=== PATIENT | female | born 1940 | race Caucasian/White ===

== ENCOUNTER 2020-05-29 08:24 | Outpatient (REF) | payer MEDICARE, SELFPAY ==
[2020-05-29 11:11] LABS: MANUAL DIFF FLAG NO
[2020-05-29 11:29] LABS: Basophils Percent Auto 0.7 % (0-2); Eosinophils Absolute Auto 0.2 X10*3/uL (0.0-0.4); Eosinophils Percent Auto 3.5 % (0-4); Hematocrit 41.6 % (37-47); Hemoglobin 13.5 g/dl (12.0-16.0); Imm Gran Abs Auto 0.01 X10*3/uL (0.00-0.03); Imm Gran Pct Auto 0.2 % (0.0-0.4); Lymphocytes Absolute Auto 1.5 X10*3/uL (1.2-4.9); Lymphocytes Percent Auto 34.6 % (20-40); Mean Corpuscular HGB Conc 32.5 g/dl (31.0-35.0); Mean Corpuscular Hemoglobin 30.7 pg (27.0-33.0); Mean Corpuscular Volume 94.5 fL (80-98); Mean Platelet Volume 9.2 fL (9.4-12.3); Monocytes Absolute Auto 0.4 X10*3/uL (0.1-1.2); Monocytes Percent Auto 9.8 % (2-11); Neutrophils Absolute Auto 2.2 X10*3/uL (2.0-8.3); Neutrophils Percent Auto 51.2 % (45-73); Platelet Count 307 X10*3/uL (160-400); Red Cell Distribution Width 12.2 % (11.0-16.0); White Blood Count 4.3 X10*3/uL (4.8-10.8)
[2020-05-29 11:46] LABS: Alanine Aminotransferase 18 U/L (0-31); Albumin Level 4.1 g/dL (3.5-5.0); Alkaline Phosphatase 72 U/L (39-117); Anion Gap 14 (12-20); Aspartate Amino Transferase 21 U/L (5-31); Bilirubin Total 0.5 mg/dL (0.0-1.0); Blood Urea Nitrogen 12 mg/dL (9-16); Calcium 8.8 mg/dL (8.4-10.2); Carbon Dioxide 28 mmol/L (22-29); Chloride 103 mmol/L (96-108); Cholesterol 194 mg/dL; Estimated Glomerular Filt Rate > 60; Glucose Fasting 91 mg/dL (60-99); HDL Cholesterol 68 mg/dL; LDL Cholesterol Calculated 113 mg/dl; Sodium 141 mmol/L (135-145); Total Protein 6.8 g/dL (6.5-8.0); Triglycerides 69 mg/dL
[2020-05-29 11:48] LABS: Glucose Urine UA NEG (NEG); Leukocyte Esterase Urine TRACE (NEG); Nitrite Urine NEG (NEG); Specific Gravity - Urine 1.015 (1.005-1.025); Urine Blood TRACE (NEG); Urine Ketones NEG (NEG); Urine Protein NEG (NEG-TRACE)
[2020-05-29 11:58] LABS: Appearance Urine CLEAR; Color Urine YELLOW
[2020-05-29 12:08] LABS: Creatinine Urine 72.14 mg/dL; Microalbumin Urine < 5.0 mg/L; Thyroid Stimulating Hormone 1.62 uIU/mL (0.32-4.0); Vitamin D 25-OH Total 51.7 ng/mL (>30)
[2020-05-29 12:11] LABS: Estimated Average Glucose 108 mg/dL; Hemoglobin A1c % 5.4 %
[2020-05-29 12:38] LABS: RBC Urine 0-2 /HPF (0); Squamous Epithelial Cell Urine TRACE /LPF; WBC Urine 0-2 /HPF (0-4)
== END 2020-05-29 08:25 | disposition home or self-care (01) ==
LOC: HO.HMGCLDS 08:24
PROVIDERS: PCP Internal Medicine; Visit Provider Internal Medicine
DX: E03.9 Hypothyroidism, unspecified (principal); R73.03 Prediabetes; M81.0 Age-related osteoporosis without current pathological fracture; Z87.448 Personal history of other diseases of urinary system; Z86.39 Personal history of other endocrine, nutritional and metabolic disease
CPT/HCPCS: 36415; 80053; 80061; 81001; 82043; 82306; 83036; 84443; 85025

== ENCOUNTER 2020-07-26 08:27 | Outpatient (REF) | payer MEDICARE, SELFPAY ==
--- NOTE | ~2020-07-26 | MM_ITS ---
EXAMINATION: MM SCREENING DIGITAL BREAST TOMOSYNTHESIS, BILATERAL CLINICAL INFORMATION: Screening. Asymptomatic. The lifetime risk of breast cancer based on the Tyrer-Cuzick Model is 1%. COMPARISON: Mammography: 07/21/2019, 04/25/2018, 03/06/2017 TECHNIQUE: Digital breast tomosynthesis is performed in both the craniocaudal and mediolateral oblique views along with computer-aided detection (CAD). Synthesized 2D images are generated from the tomosynthesis. FINDINGS: There are scattered areas of fibroglandular density (ACR BI-RADS breast composition Category b). There are no significant masses, abnormal calcifications, or other abnormalities. The axilla and skin contours are unremarkable. No significant changes. MM/MM tomosynthesis screening BI IMPRESSION: No mammographic evidence of malignancy. ASSESSMENT: BI-RADS 1: Negative RECOMMENDATION: Routine annual mammography screening. This patient's information was entered into a reminder system with a target due date for their next mammogram.
== END 2020-07-26 08:28 | disposition home or self-care (01) ==
LOC: HO.MAMMO 08:27
PROVIDERS: PCP Internal Medicine; Visit Provider Internal Medicine
DX: Z12.31 Encounter for screening mammogram for malignant neoplasm of breast (principal)
CPT/HCPCS: 77063; 77067

== ENCOUNTER 2021-01-11 13:56 | Outpatient (REF) | payer MEDICARE, SELFPAY ==
[2021-01-11 14:19] LABS: Glucose Urine UA NEG (NEG); Leukocyte Esterase Urine 3+ (NEG); Nitrite Urine POS (NEG); Urine Blood 2+ (NEG); Urine Ketones NEG (NEG); Urine Protein NEG (NEG-TRACE)
[2021-01-11 14:26] LABS: Appearance Urine HAZY; Color Urine YELLOW
[2021-01-11 14:34] LABS: Bacteria Urine 3+ /LPF; RBC Urine 0 /HPF (0); Renal Epithelial Cells Urine 1+ /LPF; WBC Clumps Urine NOTED; WBC Urine 30-49 /HPF (0-4)
== END 2021-01-11 13:57 | disposition home or self-care (01) ==
LOC: HO.LNP 13:56
PROVIDERS: Visit Provider Internal Medicine
DX: N30.00 Acute cystitis without hematuria (principal)
CPT/HCPCS: 81001; 87086; 87088; 87186

== ENCOUNTER 2021-01-25 07:30 | Outpatient (REF) | payer MEDICARE, SELFPAY ==
[2021-01-25 10:55] LABS: Glucose Urine UA NEG (NEG); Leukocyte Esterase Urine 3+ (NEG); Nitrite Urine NEG (NEG); Specific Gravity - Urine 1.015 (1.005-1.025); Urine Blood TRACE (NEG); Urine Ketones NEG (NEG); Urine Protein NEG (NEG-TRACE)
[2021-01-25 11:04] LABS: Appearance Urine HAZY; Color Urine YELLOW
[2021-01-25 11:31] LABS: Squamous Epithelial Cell Urine 3+ /LPF
[2021-01-25 11:32] LABS: Renal Epithelial Cells Urine 3+ /LPF
== END 2021-01-25 07:31 | disposition home or self-care (01) ==
LOC: HO.LNP 07:30
PROVIDERS: Visit Provider Internal Medicine
DX: N30.01 Acute cystitis with hematuria (principal)
CPT/HCPCS: 81001; 81003; 87086

== ENCOUNTER 2021-02-23 10:30 | Outpatient (REF) | payer MEDICARE, SELFPAY ==
[2021-02-23 10:53] LABS: Appearance Urine HAZY; Color Urine YELLOW; Glucose Urine UA NEG (NEG); Leukocyte Esterase Urine 2+ (NEG); Nitrite Urine NEG (NEG); PH 7.5 (5.0-8.0); Specific Gravity - Urine 1.015 (1.005-1.025); Urine Blood TRACE (NEG); Urine Ketones NEG (NEG); Urine Protein NEG (NEG-TRACE)
[2021-02-23 11:11] LABS: Amorphous Sediment Urine 1+ /LPF; Mucus Urine 2+ /LPF; RBC Urine 0-2 /HPF (0); Renal Epithelial Cells Urine 1+ /LPF; Squamous Epithelial Cell Urine 2+ /LPF
== END 2021-02-23 10:31 | disposition home or self-care (01) ==
LOC: HO.LNP 10:30
PROVIDERS: Visit Provider Internal Medicine
DX: R31.9 Hematuria, unspecified (principal)
CPT/HCPCS: 81001

== ENCOUNTER 2021-05-21 14:56 | Outpatient (REF) | payer MEDICARE, SELFPAY ==
[2021-05-21 15:36] LABS: Appearance Urine CLEAR; Color Urine YELLOW; Glucose Urine UA NEG (NEG); Leukocyte Esterase Urine 3+ (NEG); Nitrite Urine NEG (NEG); PH 6.5 (5.0-8.0); Specific Gravity - Urine <= 1.005 (1.005-1.025); Urine Blood 1+ (NEG); Urine Ketones NEG (NEG); Urine Protein NEG (NEG-TRACE)
[2021-05-21 16:29] LABS: Bacteria Urine 2+ /LPF; Squamous Epithelial Cell Urine 1+ /LPF
== END 2021-05-21 14:57 | disposition home or self-care (01) ==
LOC: HO.LNP 14:56
PROVIDERS: Visit Provider Internal Medicine
DX: N30.00 Acute cystitis without hematuria (principal)
CPT/HCPCS: 81001; 81003; 87086; 87088; 87186

== ENCOUNTER 2021-06-04 10:36 | Outpatient (REF) | payer MEDICARE, SELFPAY ==
[2021-06-04 11:08] LABS: Appearance Urine CLEAR; Color Urine YELLOW; Glucose Urine UA NEG (NEG); Leukocyte Esterase Urine 1+ (NEG); Nitrite Urine NEG (NEG); Specific Gravity - Urine 1.015 (1.005-1.025); Urine Blood NEG (NEG); Urine Ketones NEG (NEG); Urine Protein NEG (NEG-TRACE)
[2021-06-04 11:20] LABS: RBC Urine 0 /HPF (0); Squamous Epithelial Cell Urine 2+ /LPF
[2021-06-04 11:21] LABS: Amorphous Sediment Urine TRACE /LPF; Renal Epithelial Cells Urine TRACE /LPF
== END 2021-06-04 10:37 | disposition home or self-care (01) ==
LOC: HO.LNP 10:36
PROVIDERS: Visit Provider Internal Medicine
DX: N39.0 Urinary tract infection, site not specified (principal)
CPT/HCPCS: 81001; 87086

== ENCOUNTER 2021-06-11 10:51 | Outpatient (REF) | payer MEDICARE, SELFPAY ==
[2021-06-11 10:53] LABS: MANUAL DIFF FLAG NO
[2021-06-11 11:17] LABS: Basophils Percent Auto 0.5 % (0-2); Eosinophils Absolute Auto 0.2 X10*3/uL (0.0-0.4); Eosinophils Percent Auto 2.3 % (0-4); Hematocrit 42.3 % (37.0-47.0); Hemoglobin 13.7 g/dl (12.0-16.0); Imm Gran Abs Auto 0.01 X10*3/uL (0.00-0.03); Imm Gran Pct Auto 0.2 % (0.0-0.4); Lymphocytes Absolute Auto 1.6 X10*3/uL (1.2-4.9); Lymphocytes Percent Auto 24.9 % (20-40); Mean Corpuscular HGB Conc 32.4 g/dl (31.0-35.0); Mean Corpuscular Hemoglobin 30.6 pg (27.0-33.0); Mean Corpuscular Volume 94.6 fL (80.0-98.0); Mean Platelet Volume 9.3 fL (9.4-12.3); Monocytes Absolute Auto 0.7 X10*3/uL (0.1-1.2); Monocytes Percent Auto 10.3 % (2-11); Neutrophils Percent Auto 61.8 % (45-73); Platelet Count 309 X10*3/uL (160-400); Red Blood Count 4.47 X10*6/uL (4.20-5.50); Red Cell Distribution Width 12.2 % (11.0-16.0); White Blood Count 6.4 X10*3/uL (4.8-10.8)
[2021-06-11 11:35] LABS: Estimated Average Glucose 108 mg/dL; Hemoglobin A1c % 5.4 %
[2021-06-11 11:44] LABS: Alanine Aminotransferase 19 U/L (0-31); Alkaline Phosphatase 74 U/L (39-117); Anion Gap 12 (12-20); Aspartate Amino Transferase 22 U/L (5-31); Bilirubin Total 0.6 mg/dL (0.0-1.0); Blood Urea Nitrogen 10 mg/dL (9-16); Calcium 9.6 mg/dL (8.4-10.2); Carbon Dioxide 28 mmol/L (22-29); Chloride 104 mmol/L (96-108); Cholesterol 198 mg/dL; Estimated Glomerular Filt Rate > 60; Glucose Fasting 100 mg/dL (60-99); HDL Cholesterol 67 mg/dL; LDL Cholesterol Calculated 113 mg/dl; Potassium 4.1 mmol/L (3.3-5.1); Sodium 140 mmol/L (135-145); Total Protein 6.9 g/dL (6.5-8.0); Triglycerides 91 mg/dL
[2021-06-11 11:45] LABS: Appearance Urine HAZY; Color Urine YELLOW; Glucose Urine UA NEG (NEG); Leukocyte Esterase Urine 2+ (NEG); Nitrite Urine NEG (NEG); PH 6.5 (5.0-8.0); Urine Blood TRACE (NEG); Urine Ketones NEG (NEG); Urine Protein NEG (NEG-TRACE)
[2021-06-11 11:47] LABS: Microalbum/Creatinine Ratio Ur 8.6 ug/mg cr
[2021-06-11 11:55] LABS: RBC Urine 0-2 /HPF (0); Squamous Epithelial Cell Urine 1+ /LPF
[2021-06-11 11:56] LABS: Mucus Urine 1+ /LPF
[2021-06-11 11:58] LABS: Vitamin D 25-OH Total 46.7 ng/mL (>30)
== END 2021-06-11 10:52 | disposition home or self-care (01) ==
LOC: HO.LNP 10:51
PROVIDERS: Visit Provider Internal Medicine
DX: E03.9 Hypothyroidism, unspecified (principal); R73.03 Prediabetes; Z86.39 Personal history of other endocrine, nutritional and metabolic disease
CPT/HCPCS: 80053; 80061; 81001; 81003; 82043; 82306; 83036; 85025

== ENCOUNTER 2021-07-17 15:44 | Outpatient (REF) | payer MEDICARE, SELFPAY | END 2021-07-17 15:45 | disposition home or self-care (01) | LOC: HO.LNP 15:44 | PROVIDERS: Visit Provider Internal Medicine | DX: E03.9 Hypothyroidism, unspecified (principal); N39.0 Urinary tract infection, site not specified | CPT/HCPCS: 84443; 87086 ==

== ENCOUNTER 2021-08-15 14:58 | Outpatient (REF) | payer MEDICARE, SELFPAY ==
--- NOTE | ~2021-08-15 | MM_ITS ---
EXAMINATION: MM SCREENING DIGITAL BREAST TOMOSYNTHESIS, BILATERAL CLINICAL INFORMATION: Screening. Asymptomatic. The lifetime risk of breast cancer based on the Tyrer-Cuzick Model is 1%. COMPARISON: Mammography: 07/26/2020, 07/21/2019, 04/25/2018 TECHNIQUE: Digital breast tomosynthesis is performed in both the craniocaudal and mediolateral oblique views along with computer-aided detection (CAD). Synthesized 2D images are generated from the tomosynthesis. Additional left MLO view is provided. FINDINGS: There are scattered areas of fibroglandular density (ACR BI-RADS breast composition Category b). There are no significant masses, abnormal calcifications, or other abnormalities. Parenchymal pattern is similar to prior studies. There is no developing density or architectural abnormality. The axilla and skin contours are unremarkable. No significant changes. MM/MM tomosynthesis screening BI IMPRESSION: There are no significant changes from prior study. ASSESSMENT: BI-RADS 1: Negative RECOMMENDATION: Routine annual mammography screening. This patient's information was entered into a reminder system with a target due date for their next mammogram.
== END 2021-08-15 14:59 | disposition home or self-care (01) ==
LOC: HO.MAMMO 14:58
PROVIDERS: PCP Internal Medicine; Visit Provider Internal Medicine
DX: Z12.31 Encounter for screening mammogram for malignant neoplasm of breast (principal)
CPT/HCPCS: 77063; 77067

== ENCOUNTER 2021-09-18 12:36 | Outpatient (REF) | payer MEDICARE, SELFPAY ==
[2021-09-18 13:17] LABS: Appearance Urine HAZY; Color Urine YELLOW; Glucose Urine UA NEG (NEG); Leukocyte Esterase Urine 1+ (NEG); Nitrite Urine NEG (NEG); PH 6.5 (5.0-8.0); Specific Gravity - Urine <= 1.005 (1.005-1.025); Urine Blood 3+ (NEG); Urine Ketones NEG (NEG); Urine Protein NEG (NEG-TRACE)
[2021-09-18 13:59] LABS: RBC Urine 50-75 /HPF (0); Renal Epithelial Cells Urine 1+ /LPF; Squamous Epithelial Cell Urine 1+ /LPF; WBC Urine 0-2 /HPF (0-4)
== END 2021-09-18 12:37 | disposition home or self-care (01) ==
LOC: HO.LNP 12:36
PROVIDERS: Visit Provider Internal Medicine
DX: N39.0 Urinary tract infection, site not specified (principal)
CPT/HCPCS: 81001; 81003; 87086

== ENCOUNTER 2021-09-26 13:29 | Outpatient (REF) | payer MEDICARE, SELFPAY ==
--- NOTE | ~2021-09-26 | CT_ITS ---
EXAMINATION: CT ABDOMEN AND PELVIS WITHOUT CONTRAST CLINICAL INFORMATION: Kidney stone. COMPARISON: CT abdomen and pelvis 08/30/2019. TECHNIQUE: Multidetector volumetric imaging was performed from the superior aspect of the liver through the pubic symphysis. Sagittal and coronal reformatted images were obtained on the technologist's workstation. This CT examination was performed using dose optimization techniques as appropriate, variously including the following: *Automated exposure control *Adjustment of mA and/or kV according to patient size (this includes techniques or standardized protocols for targeted exams where dose is matched to indication/reason for exam; i.e. extremities or head) *Use of iterative reconstruction technique DLP: 460 mGy-cm FINDINGS: LUNG BASES: Focal atelectatic changes seen in the right lung base. The heart size is normal. LIVER, GALLBLADDER, AND BILIARY TREE: The liver is normal in size, shape, and attenuation. No focal hepatic lesion or biliary ductal dilatation is present. The gallbladder is unremarkable with no evidence of radiopaque gallstones, gallbladder wall thickening, or obvious pericholecystic inflammatory changes. PANCREAS: Unremarkable. SPLEEN: Unremarkable. ADRENAL GLANDS: Unremarkable. KIDNEYS AND URETERS: The kidneys are normal in size, shape, and attenuation. No hydronephrosis, hydroureter, or calculi seen. No perinephric stranding. There are bilateral extrarenal kidney pelvises slightly larger on the right. There is no hydroureter. BLADDER: The bladder is distended with no bladder wall thickening or radiopaque calculi seen. GASTROINTESTINAL TRACT: There is scattered stool, gas and few scattered diverticuli seen throughout the colon without any significant distention. The small bowel loops are normal caliber. Appendix is normal caliber. ABDOMINAL WALL: No significant hernia is appreciated. LYMPH NODES: No abnormal lymph nodes seen. VASCULAR: Unremarkable. PELVIC VISCERA: No free air or free fluid seen. The uterus is anteverted. No adnexal mass seen. OSSEOUS STRUCTURES: There are degenerative disc changes L5-S1 disc level with vacuum disc phenomenon mild ventral and posterior spondylosis. CT/CT abdomen pelvis wo con IMPRESSION: No radiopaque urolith. There are bilateral extrarenal kidney pelvises right greater than left. The bladder is mildly distended. Colonic diverticulosis without diverticulitis. Degenerative disc changes L5-S1 disc level. Fleischner guidelines were followed.
== END 2021-09-26 13:30 | disposition home or self-care (01) ==
LOC: HO.CT 13:29
PROVIDERS: PCP Internal Medicine; Visit Provider Internal Medicine
DX: N20.0 Calculus of kidney (principal)
CPT/HCPCS: 74176

== ENCOUNTER 2022-03-12 15:46 | Outpatient (REF) | payer MEDICARE, SELFPAY ==
[2022-03-12 16:01] LABS: Appearance Urine Clear; Color Urine Yellow; Glucose Urine UA Negative (Negative); Leukocyte Esterase Urine Large (3+) (Negative); Nitrite Urine Negative (Negative); UMIC TRIGGER UA YES; Urine Blood Negative (Negative); Urine Ketones Negative (Negative); Urine Protein Negative (Neg-Trace)
[2022-03-12 16:04] LABS: Bacteria Urine 2+ (None Seen); Hyaline Casts Urine 0-2 /LPF (0-2); RBC Urine 0-2 /HPF (0-2); Squamous Epithelial Cell Urine 0-2 /HPF (0-2); WBC Urine >50 /HPF (0-5)
== END 2022-03-12 15:47 | disposition home or self-care (01) ==
LOC: HO.LNP 15:46
PROVIDERS: Visit Provider Internal Medicine
DX: N30.00 Acute cystitis without hematuria (principal)
CPT/HCPCS: 81001; 87086; 87088; 87186

== ENCOUNTER 2022-04-05 15:43 | Outpatient (REF) | payer MEDICARE, SELFPAY ==
[2022-04-05 16:04] LABS: Appearance Urine Clear; Color Urine Yellow; Glucose Urine UA Negative (Negative); Leukocyte Esterase Urine Moderate (2+) (Negative); Nitrite Urine Negative (Negative); PH 7.5 (5.0-9.0); UMIC TRIGGER UA YES; Urine Blood Negative (Negative); Urine Ketones Negative (Negative); Urine Protein Negative (Neg-Trace)
[2022-04-05 16:21] LABS: Bacteria Urine None Seen (None Seen); Hyaline Casts Urine 0-2 /LPF (0-2); RBC Urine 0-2 /HPF (0-2); Squamous Epithelial Cell Urine 0-2 /HPF (0-2); WBC Urine 0-5 /HPF (0-5)
== END 2022-04-05 15:44 | disposition home or self-care (01) ==
LOC: HO.LNP 15:43
PROVIDERS: Visit Provider Internal Medicine
DX: R82.90 Unspecified abnormal findings in urine (principal)
CPT/HCPCS: 81001; 87086

== ENCOUNTER 2022-07-16 11:36 | Outpatient (REF) | payer MEDICARE, SELFPAY ==
[2022-07-16 11:41] LABS: MANUAL DIFF FLAG NO
[2022-07-16 11:53] LABS: Basophils Percent Auto 0.7 % (0-2); Eosinophils Absolute Auto 0.2 X10*3/uL (0.0-0.4); Eosinophils Percent Auto 4.3 % (0-4); Hematocrit 41.2 % (37.0-47.0); Hemoglobin 13.6 g/dl (12.0-16.0); Imm Gran Abs Auto 0.01 X10*3/uL (0.00-0.03); Imm Gran Pct Auto 0.2 % (0.0-0.4); Lymphocytes Absolute Auto 1.7 X10*3/uL (1.2-4.9); Lymphocytes Percent Auto 37.4 % (20-40); Mean Corpuscular Hemoglobin 30.8 pg (27.0-33.0); Mean Corpuscular Volume 93.2 fL (80.0-98.0); Mean Platelet Volume 9.3 fL (9.4-12.3); Monocytes Absolute Auto 0.5 X10*3/uL (0.1-1.2); Monocytes Percent Auto 10.5 % (2-11); Neutrophils Absolute Auto 2.1 x10*3/uL (2.0-8.3); Neutrophils Percent Auto 46.9 % (45-73); Platelet Count 297 X10*3/uL (160-400); Red Blood Count 4.42 X10*6/uL (4.20-5.50); Red Cell Distribution Width 12.4 % (11.0-16.0); White Blood Count 4.5 X10*3/uL (4.8-10.8)
[2022-07-16 11:54] LABS: Appearance Urine Clear; Color Urine Yellow; Glucose Urine UA Negative (Negative); Leukocyte Esterase Urine Trace (Negative); Nitrite Urine Negative (Negative); UMIC TRIGGER UACC YES; Urine Blood Negative (Negative); Urine Ketones Negative (Negative); Urine Protein Negative (Neg-Trace)
[2022-07-16 11:58] LABS: Bacteria Urine None Seen (None Seen); Hyaline Casts Urine 0-2 /LPF (0-2); RBC Urine 0-2 /HPF (0-2); Squamous Epithelial Cell Urine 0-2 /HPF (0-2); WBC Urine 0-5 /HPF (0-5)
[2022-07-16 12:05] LABS: Estimated Average Glucose 103 mg/dL; Hemoglobin A1c % 5.2 %
[2022-07-16 12:52] LABS: Alanine Aminotransferase 16 U/L (0-31); Albumin Level 3.9 g/dL (3.5-5.0); Alkaline Phosphatase 74 U/L (39-117); Anion Gap 14 (12-20); Aspartate Amino Transferase 22 U/L (5-31); Bilirubin Total 0.6 mg/dL (0.0-1.0); Blood Urea Nitrogen 14 mg/dL (9-16); Calcium 9.3 mg/dL (8.4-10.2); Carbon Dioxide 27 mmol/L (22-29); Chloride 102 mmol/L (96-108); Cholesterol 200 mg/dL; Estimated Glomerular Filt Rate > 60; Glucose Fasting 98 mg/dL (60-99); HDL Cholesterol 72 mg/dL; LDL Cholesterol Calculated 112 mg/dl; Potassium 4.2 mmol/L (3.3-5.1); Sodium 139 mmol/L (135-145); Total Protein 6.4 g/dL (6.5-8.0); Triglycerides 81 mg/dL
[2022-07-16 13:09] LABS: TSH reflex Free T4 2.35 uIU/mL (0.32-4.0); Vitamin D 25-OH Total 49.9 ng/mL (>30)
[2022-07-16 13:36] LABS: Creatinine Urine 66.09 mg/dL; Microalbumin Urine < 5.0 mg/L
== END 2022-07-16 11:37 | disposition home or self-care (01) ==
LOC: HO.LNP 11:36
PROVIDERS: Visit Provider Internal Medicine
DX: E03.9 Hypothyroidism, unspecified (principal); R73.03 Prediabetes; Z86.39 Personal history of other endocrine, nutritional and metabolic disease
CPT/HCPCS: 80053; 80061; 81001; 82043; 82306; 83036; 84443; 85025

== ENCOUNTER → 2022-07-26 13:54 | Outpatient (REF) | payer MEDICARE, SELFPAY ==
--- NOTE | 2022-07-26 13:58 | HM_ITS ---
CARDIAC EVENT MONITOR Indication Palpitations Technique: Patient was hooked up to cardiac event monitor on 07/26/2022 for total period of 30 days. Compliance rate was 96%. Some strips for of good quality. Findings: Baseline was normal sinus rhythm with minimal heart rate of 65 beats per minute and maximum heart rate of 138 beats per minute. There were no pauses or significant bradycardia noted. There were total of 1% of isolated PVCs accounting for occasional PVCs There were rare PACs noted There were few short runs of SVTs could represent paroxysmal atrial tachycardia. Patient activated the monitor 7 times which correlated with sinus rhythm or sinus tachycardia. Conclusion: 1. Baseline was normal sinus rhythm with no significant pauses 2. Occasional isolated PVCs noted 3. Patient reported 7 events without correlating symptoms correlated with sinus rhythm or sinus tachycardia MTDD
== END ==
LOC: HO.CARD 13:54
PROVIDERS: PCP Internal Medicine; Visit Provider Internal Medicine
DX: R00.2 Palpitations (principal)
CPT/HCPCS: 93270

== ENCOUNTER 2022-09-18 14:48 | Outpatient (REF) | payer MEDICARE, SELFPAY ==
--- NOTE | ~2022-09-18 | MM_ITS ---
EXAMINATION: MM SCREENING DIGITAL BREAST TOMOSYNTHESIS, BILATERAL CLINICAL INFORMATION: Screening. Asymptomatic. The lifetime risk of breast cancer based on the Tyrer-Cuzick Model is 1.2%. COMPARISON: Mammography: August 15, 2021 and studies dating back to February 13, 2016 TECHNIQUE: Digital breast tomosynthesis is performed in both the craniocaudal and mediolateral oblique views along with computer-aided detection (CAD). Synthesized 2D images are generated from the tomosynthesis. FINDINGS: The breasts are heterogeneously dense, which may obscure small masses (ACR BI-RADS breast composition Category c). There are no significant masses, abnormal calcifications, or other abnormalities. MM/MM tomosynthesis screening BI IMPRESSION: No significant changes ASSESSMENT: BI-RADS 1: Negative RECOMMENDATION: Routine annual mammography screening. This patient's information was entered into a reminder system with a target due date for their next mammogram.
== END 2022-09-18 14:49 | disposition home or self-care (01) ==
LOC: HO.MAMMO 14:48
PROVIDERS: Visit Provider Internal Medicine
DX: Z12.31 Encounter for screening mammogram for malignant neoplasm of breast (principal)
CPT/HCPCS: 77063; 77067

== ENCOUNTER 2023-07-17 07:59 | Outpatient (REF) | payer MEDICARE, SELFPAY ==
[2023-07-17 10:13] LABS: MANUAL DIFF FLAG NO
[2023-07-17 10:21] LABS: Appearance Urine Clear; Color Urine Yellow; Glucose Urine UA Negative (Negative); Leukocyte Esterase Urine Large (3+) (Negative); Nitrite Urine Positive (Negative); UMIC TRIGGER UACC YES; Urine Blood Negative (Negative); Urine Ketones Negative (Negative); Urine Protein Negative (Neg-Trace)
[2023-07-17 10:23] LABS: Basophils Percent Auto 0.8 % (0-2); Eosinophils Absolute Auto 0.2 X10*3/uL (0.0-0.4); Hematocrit 39.9 % (37.0-47.0); Hemoglobin 13.5 g/dl (12.0-16.0); Imm Gran Abs Auto 0.01 X10*3/uL (0.00-0.03); Imm Gran Pct Auto 0.3 % (0.0-0.4); Lymphocytes Absolute Auto 1.2 X10*3/uL (1.2-4.9); Lymphocytes Percent Auto 29.8 % (20-40); Mean Corpuscular HGB Conc 33.8 g/dl (31.0-35.0); Mean Corpuscular Hemoglobin 30.6 pg (27.0-33.0); Mean Corpuscular Volume 90.5 fL (80.0-98.0); Mean Platelet Volume 8.7 fL (9.4-12.3); Monocytes Absolute Auto 0.4 X10*3/uL (0.1-1.2); Monocytes Percent Auto 10.5 % (2-11); Neutrophils Absolute Auto 2.2 x10*3/uL (2.0-8.3); Neutrophils Percent Auto 54.6 % (45-73); Platelet Count 287 X10*3/uL (160-400); Red Blood Count 4.41 X10*6/uL (4.20-5.50); Red Cell Distribution Width 12.1 % (11.0-16.0)
[2023-07-17 10:27] LABS: Bacteria Urine 1+ (None Seen); Hyaline Casts Urine 0-2 /LPF (0-2); RBC Urine 0-2 /HPF (0-2); UACC Culture Trigger YES
[2023-07-17 10:34] LABS: Estimated Average Glucose 105 mg/dL; Hemoglobin A1c % 5.3 % (<6.0)
[2023-07-17 10:42] LABS: Creatinine Urine 49.23 mg/dL; Microalbum/Creatinine Ratio Ur 18.2 ug/mg cr (<30)
[2023-07-17 10:47] LABS: Alanine Aminotransferase 18 U/L (0-31); Albumin Level 4.2 g/dL (3.5-5.0); Alkaline Phosphatase 70 U/L (39-117); Anion Gap 11 (12-20); Aspartate Amino Transferase 23 U/L (5-31); Bilirubin Total 0.6 mg/dL (0.0-1.0); Blood Urea Nitrogen 16 mg/dL (9-16); Calcium 9.6 mg/dL (8.4-10.2); Carbon Dioxide 29 mmol/L (22-29); Chloride 102 mmol/L (96-108); Cholesterol 214 mg/dL (<200); Estimated Glomerular Filt Rate > 60; Glucose Fasting 95 mg/dL (60-99); HDL Cholesterol 73 mg/dL (>40); LDL Cholesterol Calculated 128 mg/dL (<100); Magnesium 2.3 mg/dL (1.6-2.6); Sodium 138 mmol/L (135-145); Total Protein 7.2 g/dL (6.5-8.0); Triglycerides 66 mg/dL (<150)
== END 2023-07-17 08:00 | disposition home or self-care (01) ==
LOC: HO.10HDL 07:59
PROVIDERS: Visit Provider Internal Medicine
DX: E03.9 Hypothyroidism, unspecified (principal); R73.03 Prediabetes; E83.41 Hypermagnesemia; Z86.39 Personal history of other endocrine, nutritional and metabolic disease
CPT/HCPCS: 36415; 80053; 80061; 81001; 82043; 82570; 83036; 83735; 84443; 85025; 87086

== ENCOUNTER 2023-07-28 10:14 | Outpatient (REF) | payer MEDICARE, SELFPAY ==
--- NOTE | ~2023-07-28 | XR_ITS ---
EXAMINATION: XR CERVICAL SPINE CLINICAL INFORMATION: Neck pain. COMPARISON: None available. TECHNIQUE: 3 views of the cervical spine were obtained. FINDINGS: The bones are diffusely demineralized. Mild anterolisthesis of C4 on C5. Multilevel cervical spondylosis, most notable at C5-C6 with loss of disc space height and hypertrophic change. Minimal retrolisthesis of C7 on T1. Minimal anterolisthesis of C7 on T1. XR/XR cervical spine 3V IMPRESSION: Multilevel cervical spondylosis, most notable at C5-C6.
== END 2023-07-28 10:15 | disposition home or self-care (01) ==
LOC: HO.HMGCX 10:14
PROVIDERS: PCP Internal Medicine; Visit Provider Internal Medicine
DX: M54.2 Cervicalgia (principal)
CPT/HCPCS: 72040

== ENCOUNTER 2023-09-10 11:00 | Outpatient (RCR) | payer MEDICARE, SELFPAY ==
--- NOTE | 2023-08-15 11:59 | MHC.PT.EP ---
[facility] [place] [facility] [place] Office [place] Office [address] [phone] F: [phone] F: [phone] F: [phone] F: [phone] Physical Therapy Plan of Care Date of Evaluation: 08/15/23 Date of Surgery: Diagnosis: This is a 83 yo female presenting to skilled PT with a script for R shoulder and neck pain. Assessment: This is a 83 yo female presenting to skilled PT with a script for R shoulder and neck pain. Patient reporting R arm pain starting about a year ago. It has gotten worse over time radiating up into the shoulder and R upper trap. Pain is achy but not sharp. Pain is with movement only, mainly with R cervical rotation, donning UB clothing. She has some nonpainful crepitus as well. Assessment reveals pain that ranges from up to a 5/10 at the worst. Patient demos decreased R shoulder and cervical ROM, strength of R shoulder, minimal TTP throughout soft tissue and c-spine and impaired posture with forward head and rounded shoulders with compensatory lateral tilting of head. Based on functional limitations, impaired QOL and pain tolerance patient is a good candidate for skilled PT 2x/wk for 4wks. 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 Manual therapy to restore motion and function. Therapeutic exercise to improve strength and flexibility. Neuromuscular re-education for posture and balance. Therapeutic activities to return to functional activities of daily living. Electronically signed by: Clarissa Edwards, PT Please sign and return to therapist. Thank you for your referral.
--- NOTE | 2023-09-10 12:46 | MHC.PT.DC ---
[facility] [place] Office [place] Office [place] Office [address] [phone] F: [phone] F: [phone] F: [phone] F: [phone] Physical Therapy Discharge Report Diagnosis: This is a 83 yo female presenting to skilled PT with a script for R shoulder and neck pain. Date of Surgery: Date of Evaluation: 08/15/23 Date of Discharge: 09/10/23 Treatments to Date: 9 Cancellations to Date: 0 No Shows to Date: 0 Discharge Status: Achieved Goals Improved Function Independent with HEP Discharge Summary: 09/09: Patient has come to 9 PT appointments and faired well. She has been given an HEP to continue on her own and with which she is compliant and I in. She does endorse continued symptoms in her neck and was educated to speak with PCP in regards to this if symptoms continue to linger and bother her. She has improved her ROM and strength as well as postural awareness. We did talk about making postural adjustments as she does alot of puzzles in prolonged positions. Patient is ready and appropriate for DC to HEP at this time. Electronically signed by: Clarissa Edwards PT Please sign and return to therapist. Thank you for your referral.
== END 2023-09-10 12:46 | disposition home or self-care (01) ==
LOC: HO.PTCHIC 11:00
PROVIDERS: PCP Internal Medicine; Visit Provider Internal Medicine
DX: M25.511 Pain in right shoulder (principal); M54.2 Cervicalgia
CPT/HCPCS: 97110; 97140; 97161

== ENCOUNTER 2023-09-23 15:14 | Outpatient (REF) | payer MEDICARE, SELFPAY | END 2023-09-23 15:15 | disposition home or self-care (01) | LOC: HO.MAMMO 15:14 | PROVIDERS: PCP Internal Medicine; Visit Provider Internal Medicine | DX: Z12.31 Encounter for screening mammogram for malignant neoplasm of breast (principal) | CPT/HCPCS: 77063; 77067 ==

== ENCOUNTER → 2023-09-23 15:30 | Outpatient (BNV) | payer MEDICARE, SELFPAY | PROVIDERS: PCP Internal Medicine; Visit Provider Radiology Diagnostic Radiology | DX: Z12.31 Encounter for screening mammogram for malignant neoplasm of breast (principal) | CPT/HCPCS: 77063; 77067 ==

== ENCOUNTER 2023-10-02 10:12 | Outpatient (REF) | payer MEDICARE, SELFPAY ==
--- NOTE | ~2023-10-02 | FL_ITS ---
EXAMINATION: XR FLUOROSCOPY UPPER GI WITH AIR CLINICAL INFORMATION: Esophageal spasms. History of achalasia COMPARISON: Upper GI 2009 TECHNIQUE: Fluoroscopic air contrast upper GI examination was performed utilizing standard techniques with thin and thick barium and effervescent granules. Numerous spot images were obtained. FINDINGS: Lateral cine images of the oropharynx and hypopharynx demonstrate normal swallow mechanism with normal epiglottic inversion and soft palate elevation. No tracheal penetration, glottic or subglottic aspiration identified. No nasopharyngeal reflux present. 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 Dual and single contrast images of the esophagus demonstrate a patulous esophagus. There is a granular appearance of the esophageal mucosa that likely represents reflux esophagitis. No masses or ulcerations are seen. There are diffuse constant large esophageal contractions that represent esophageal spasms. There is a small to moderate type 3 hiatal hernia. There is a high-grade short segment of narrowing of the stomach below the hiatal hernia that may represent a postsurgical stricture. Dual contrast and single contrast images of the stomach demonstrated a normal contour. There is a small diverticulum of the fundus noted. Evaluation of the gastric mucosa is limited due to underdistention of the stomach. The gastric mucosal folds appear thickened, however, this may be due to underdistention of the stomach. No obvious masses or ulcerations are seen. Contrast freely passed into the gastric antrum and duodenal bulb without delay. Single and air-contrast images of the duodenal bulb demonstrate no abnormality. The duodenal sweep has a normal appearance, course, and mucosal fold appearance. The imaged proximal jejunum has a normal fold pattern and caliber. FLUOROSCOPY TIME: 7 minutes 27 seconds Number of Spot Images: 13 Number of Cine: 16 DOSE AREA PRODUCT: 2989 uGy-m2 (microgray-meter squared) FL/FL upper GI w air IMPRESSION: 1. Moderate severe cricopharyngeal achalasia. 2. Dilated esophagus with a granular appearance of the esophageal mucosa that likely represents esophagitis. 3. Diffuse esophageal spasms. 4. Small to moderate type III hiatal hernia. 5. There is a high-grade short segment narrowing of the stomach below the hiatal hernia that likely represents a postsurgical vs peptic stricture. 6. Small diverticulum of the gastric fundus. 7. Limited evaluation of the gastric mucosa due to underdistention of the stomach. This procedure was performed by Guerrero Lyons PA-C, and supervised by Dr. Rockwell
== END 2023-10-02 10:13 | disposition home or self-care (01) ==
LOC: HO.XRAY 10:12
PROVIDERS: PCP Internal Medicine; Visit Provider Internal Medicine
DX: K22.4 Dyskinesia of esophagus (principal)
CPT/HCPCS: 74246

== ENCOUNTER → 2023-10-02 10:20 | Outpatient (BNV) | payer MEDICARE, SELFPAY | PROVIDERS: PCP Internal Medicine; Visit Provider Physician Assistant Surgical | DX: K22.4 Dyskinesia of esophagus (principal) | CPT/HCPCS: 74246 ==

== ENCOUNTER 2024-01-25 09:51 | Emergency (ER) | payer MEDICARE, SELFPAY ==
[2024-01-25 09:56] VITALS: BP 140/80; PULSE 77; O2SAT 98
[2024-01-25 09:57] VITALS: BP 155/76; PULSE 75; RESP 15; TEMP 36.7; O2SAT 99; BMI 23.4
--- NOTE | 2024-01-25 10:06 | ECG_ITS ---
Test Reason : SYNCOPE Blood Pressure : / mmHG Vent. Rate : 070 BPM Atrial Rate : 070 BPM P-R Int : 118 ms QRS Dur : 086 ms QT Int : 398 ms P-R-T Axes : 078 -02 057 degrees QTc Int : 429 ms Normal sinus rhythm Normal ECG When compared with ECG of 20-JAN-2018 23:10, No significant change was found Referred By: Whit Armstrong Electronically Signed By:CASSIDY DAUGHERTY
[2024-01-25 10:07] VITALS: BP 155/76; PULSE 75; RESP 15; TEMP 36.7; O2SAT 99
[2024-01-25 10:14] VITALS: BP 155/76; PULSE 70
[2024-01-25 10:15] VITALS: BP 135/68; BP 150/64; PULSE 77; PULSE 78
--- NOTE | 2024-01-25 10:19 | ED.SYNCOPE ---
HPI - Syncope General Chief Complaint: Dizziness Stated Complaint: DIZZY W/SYNCOPE PER EMS Source: patient, family, EMS and old records reviewed Mode of arrival: EMS Limitations: no limitations History of Present Illness ED Provider: JOSE LUGO narrative: 84 yo female with PMH of achalasia, esophageal spasms, dysmotility, s/p heller myotomy 10 years ago at [facility], has been having increased GERD and some intermittent nausea and difficulty swallowing - has been having spasms. Last night wanted to have some peach pie but known trigger for her. She had GERD afterwards was able to sleep. This AM did not eat breakfast went to denominational was planning on having donut afterwards. In denominational started to feel nausea, dizziness and was lowered to the ground, no known LOC no trauma. She is back to baseline. She had normal BS with EMS. She is not on PPI only thyroid meds just had swallow study in September showing spasms, esophageal stricture, esophagitis ordered by PCP. Has not seen Justin yet. 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(s) Prodromal symptoms: lightheaded and nausea/vomiting Witnessed: Yes - by Bystander Context: standing up Injuries sustained associated with event: none Current symptoms: back to baseline History: other Treatments prior to arrival: none Related Data Previous Rx's ?Medication ?Instructions ?Recorded omeprazole 20 mg capsule,delayed 20 mg PO BID #60 caps 01/25/24 release Allergies Allergy/AdvReac Type Severity Reaction Status Date / Time butalbital [From CEPHADYN] Allergy Unknown HIVES Unverified 01/25/24 10:03 cephalexin Allergy Unknown HIVES Unverified 01/25/24 10:03 Review of Systems Review of Systems: Constitutional : No Fever, No Chills, No Fatigue ENT/Mouth : No sore throat, No Rhinorrhea Eyes: No Eye Pain, No Swelling, No Redness Cardiovascular : pos Chest Pain, No SOB, No Dyspnea on Exertion Respiratory : No Cough, No Sputum Gastrointestinal : No Nausea, No Vomiting, No Diarrhea, No abdominal Pain Genitourinary : No Dysuria, No Urinary Frequency, No Hematuria, Musculoskeletal : No joint pain, No Myalgias, No Joint Swelling Skin : No Skin Lesions, No rash Neuro : No Weakness, No Numbness, No Dizziness, no Headache Psych : No Anxiety/Panic, No Depression All other systems reviewed and are negative [facility] Past Medical History Attestation statement: The following information was validated with the patient. Source: old records reviewed Medical History Esophagitis Esophageal stricture Achalasia Hypothyroidism Social History Social History Alcohol intake: current Alcohol intake frequency: a few times a month Alcohol type: beer Smoked in Last 30 Days: No Use of substances other than those prescribed or required for medical reasons: No Advance Directives: No Advance Directives Information Provided: No Do you have a plan to hurt others: No Plan Physical Exam Vital Signs: Vital Signs: Last Vital Signs Temp 98.1 F 01/25/24 10:07 Pulse 77 01/25/24 10:15 Resp 15 01/25/24 10:07 BP 135/68 01/25/24 10:15 Pulse Ox 99 01/25/24 10:07 O2 Del Method Room Air 01/25/24 10:07 BMI result Body Mass Index 23.4 Appearance: Alert. Oriented X3. No acute distress. Eyes: Pupils equal, round and reactive to light. ENT: Pharynx normal. Neck: Normal inspection. Neck supple. CVS: Normal heart rate and rhythm. Pulses normal. Respiratory: No respiratory distress. Breath sounds normal. Abdomen: Soft and nontender. Skin: Skin warm and dry. Normal skin color. Normal skin turgor. Extremities: No lower extremity edema. No calf ttp Neuro: Oriented X 3. No motor deficit. No sensory deficit. Medical Decision Making Medical Decision Making MDM Narrative: 84 yo female with PMH of achalasia, esophageal spasms, dysmotility, s/p heller myotomy 10 years ago at [facility] here with near syncopal episode after GERD episode last night in setting of worse esophageal disease, stricture, spasms and esophagitis and then did not eat breakfast this AM. Will obtain ortho VS, EKG, trop x 1, She has no hypoxia/tachycardia/chest pain signs of DVT or recent risk factors to suggest VTE. At this time if work up negative will start on PPI and refer back to Justin Differential Diagnosis Differential Diagnoses: The differential diagnosis associated with the presentation includes near syncope with prodrome doubt ACS or VTE, GERD, esophageal spasm Admission/Observation Consideration of admission/observation: Escalation of care including admission/observation considered work up reassuring stable for DC discussed repeat troponin she declines which is reasonable and she has no symptoms suggestive of ACS Lab Data MDM Lab Attestation statement: I reviewed the patient's lab results. 01/25/24 10:22 01/25/24 10:22 Labs: Lab Results 01/25/24 Range/Units 10:22 WBC 5.9 (4.8-10.8) X10*3/uL RBC 4.61 (4.20-5.50) X10*6/uL Hgb 14.0 (12.0-16.0) g/dl Hct 42.1 (37.0-47.0) % MCV 91.3 (80.0-98.0) fL MCH 30.4 (27.0-33.0) pg MCHC 33.3 (31.0-35.0) g/dl RDW 12.1 (11.0-16.0) % Plt Count 267 (160-400) X10*3/uL MPV 8.5 L (9.4-12.3) fL Immature Gran % (Auto) 0.3 (0.0-0.4) % Neut % (Auto) 57.2 (45-73) % Lymph % (Auto) 29.2 (20-40) % Long % (Auto) 11.0 (2-11) % Eos % (Auto) 2.0 (0-4) % Baso % (Auto) 0.3 (0-2) % Lymph # (Auto) 1.7 (1.2-4.9) X10*3/uL Long # (Auto) 0.7 (0.1-1.2) X10*3/uL Eos # (Auto) 0.1 (0.0-0.4) X10*3/uL Baso # (Auto) 0.0 (0.0-0.2) X10*3/uL Abs Immat Gran (auto) 0.02 (0.00-0.03) X10*3/uL Absolute Neuts (auto) 3.4 (2.0-8.3) x10*3/uL Absolute Nucleated RBC 0.000 (0.0-0.012) X10*3/uL Nucleated RBC % (auto) 0.0 (0.0-0.2) /100WBC Sodium 137 (135-145) mmol/L Potassium 4.1 (3.3-5.1) mmol/L Chloride 102 (96-108) mmol/L Carbon Dioxide 27 (22-29) mmol/L Anion Gap 12 (12-20) BUN 16 (9-16) mg/dL Creatinine 0.86 (0.5-1.4) mg/dL Estim Creat Clear Calc 46.3 Estimated GFR > 60 Random Glucose 107 (60-115) mg/dL Calcium 9.4 (8.4-10.2) mg/dL Magnesium 2.1 (1.6-2.6) mg/dL Total Bilirubin 0.5 (0.0-1.0) mg/dL Direct Bilirubin 0.2 (0.0-0.5) mg/dL AST 24 (5-31) U/L ALT 16 (0-31) U/L Alkaline Phosphatase 77 (39-117) U/L Troponin I High Sens < 2.7 (<3.5-17.0) ng/L Total Protein 7.1 (6.5-8.0) g/dL Albumin 4.2 (3.5-5.0) g/dL Lipase 30 (8-78) U/L Independent Interpretation I performed an independent interpretation of an: EKG Interpretation: Rate: 70 Rhythm: NSR [place]: left Normal P waves. Normal EKATERINA. Normal QRS complex. ST T wave : no ARLIN, inverted t wave V1 qTC: 429 prior studies: no acute ischemia The study has been interpreted contemporaneously by me. . Independent Historian Clinical information obtained from an independent historian. History obtained from or confirmed by: Spouse and EMS External Record Review External record reviewed: Inpatient record and Prior outpatient radiology Prescription Management I considered prescription management with: Other Discharge Plan Discharge Clinical Impression: Near syncope, Esophagitis Patient Disposition: Home, Self-Care Instructions: Near Syncope (ED), Esophagitis (ED) Additional Instructions: labs reassuring stay hydrated, drink plenty of fluids you need to see Dr. Anderson I will forward your visit and note along to him take the medications as prescribed monitor your diet do not eat large pieces of food or anything difficult to swallow Prescriptions: New omeprazole 20 mg capsule,delayed release(DR/EC) 20 mg PO BID Qty: 60 0RF Referrals: [facility] Gastroenterology Services [Provider Group] Print Language: [place]
[2024-01-25 10:27] LABS: MANUAL DIFF FLAG NO
[2024-01-25 10:28] LABS: Basophils Percent Auto 0.3 % (0-2); Eosinophils Absolute Auto 0.1 X10*3/uL (0.0-0.4); Hematocrit 42.1 % (37.0-47.0); Imm Gran Abs Auto 0.02 X10*3/uL (0.00-0.03); Imm Gran Pct Auto 0.3 % (0.0-0.4); Lymphocytes Absolute Auto 1.7 X10*3/uL (1.2-4.9); Lymphocytes Percent Auto 29.2 % (20-40); Mean Corpuscular HGB Conc 33.3 g/dl (31.0-35.0); Mean Corpuscular Hemoglobin 30.4 pg (27.0-33.0); Mean Corpuscular Volume 91.3 fL (80.0-98.0); Mean Platelet Volume 8.5 fL (9.4-12.3); Monocytes Absolute Auto 0.7 X10*3/uL (0.1-1.2); Neutrophils Absolute Auto 3.4 x10*3/uL (2.0-8.3); Neutrophils Percent Auto 57.2 % (45-73); Platelet Count 267 X10*3/uL (160-400); Red Blood Count 4.61 X10*6/uL (4.20-5.50); Red Cell Distribution Width 12.1 % (11.0-16.0); White Blood Count 5.9 X10*3/uL (4.8-10.8)
[2024-01-25 10:45] LABS: Alanine Aminotransferase 16 U/L (0-31); Albumin Level 4.2 g/dL (3.5-5.0); Alkaline Phosphatase 77 U/L (39-117); Anion Gap 12 (12-20); Aspartate Amino Transferase 24 U/L (5-31); Bilirubin Direct 0.2 mg/dL (0.0-0.5); Bilirubin Total 0.5 mg/dL (0.0-1.0); Blood Urea Nitrogen 16 mg/dL (9-16); Calcium 9.4 mg/dL (8.4-10.2); Carbon Dioxide 27 mmol/L (22-29); Chloride 102 mmol/L (96-108); Creatinine Clr Calc Pharmacy 46.3; Estimated Glomerular Filt Rate > 60; Glucose Random 107 mg/dL (60-115); Lipase 30 U/L (8-78); Magnesium 2.1 mg/dL (1.6-2.6); Potassium 4.1 mmol/L (3.3-5.1); Sodium 137 mmol/L (135-145); Total Protein 7.1 g/dL (6.5-8.0)
[2024-01-25 10:57] LABS: Troponin-I High Sensitivity < 2.7 ng/L (<3.5-17.0)
[2024-01-25 11:27] VITALS: BP 135/68; PULSE 77; RESP 18; TEMP 36.7; O2SAT 99
== END 2024-01-25 11:34 | disposition home or self-care (01) ==
PROVIDERS: Emergency Provider Emergency Medicine; PCP Internal Medicine
DX: R55 Syncope and collapse (principal); K20.90 Esophagitis, unspecified without bleeding; R42 Dizziness and giddiness; R11.2 Nausea with vomiting, unspecified; Z79.899 Other long term (current) drug therapy
CPT/HCPCS: 36415; 80048; 80076; 83690; 83735; 84484; 85025; 93005; 99284; 99285

== ENCOUNTER 2024-02-24 10:21 | Day surgery (SDC) | payer MEDICARE, SELFPAY ==
--- NOTE | 2024-02-23 11:10 | P.CONAN_ITS ---
Documented by User: Rosmery Finnegan NP 02/23/24 11:10 HPI - Anesthesia Eval Consult details Narrative: 84yo F for Upper Endoscopy [facility] Past Medical History Medical History Esophagitis Esophageal stricture Achalasia Hypothyroidism Surgical History Surgical History (Updated 02/24/24 @ 11:12 by Pasquale Martin RN) Hx of esophagogastroduodenoscopy Hx of colonoscopy Social History Social History Are you a primary vp care management to a significant other at home: No Do you presently have visiting nurse or other home services: No Alcohol intake: current Alcohol intake frequency: a few times a month Alcohol type: beer Patient Tobacco Use Status: Former Tobacco user Meds Allergies Allergy/AdvReac Type Severity Reaction Status Date / Time butalbital [From CEPHADYN] Allergy Unknown HIVES Verified 02/24/24 11:13 cephalexin Allergy Unknown HIVES Verified 02/24/24 11:13 Home Medications ?Medication ?Instructions ?Recorded ?Confirmed ?Last Taken ?Type levothyroxine 50 mcg tablet 50 mcg PO QAM 02/22/24 02/24/24 02/24/24 History meloxicam 15 mg tablet 15 mg PO DAILY 02/22/24 02/24/24 Unknown History triamcinolone acetonide 0.5 % appl topical BID 02/22/24 Unknown History topical cream Assessment and Plan Assessment Anesthesia Assessment: Chart Reviewed Documented by User: Himanshu Guido MD 02/24/24 11:40 [facility] Past Medical History Medical History Esophagitis Esophageal stricture Achalasia Hypothyroidism Family History Family history of problems with anesthesia: No Surgical History Surgical History (Updated 02/24/24 @ 11:12 by Pasquale Martin RN) Hx of esophagogastroduodenoscopy Hx of colonoscopy History of Problems with Anesthesia: No Social History Social History Are you a primary vp care management to a significant other at home: No Do you presently have visiting nurse or other home services: No Alcohol intake: current Alcohol intake frequency: a few times a month Alcohol type: beer Patient Tobacco Use Status: Former Tobacco user Meds Allergies Allergy/AdvReac Type Severity Reaction Status Date / Time butalbital [From CEPHADYN] Allergy Unknown HIVES Verified 02/24/24 11:13 cephalexin Allergy Unknown HIVES Verified 02/24/24 11:13 Home Medications ?Medication ?Instructions ?Recorded ?Confirmed ?Last Taken ?Type levothyroxine 50 mcg tablet 50 mcg PO QAM 02/22/24 02/24/24 02/24/24 History meloxicam 15 mg tablet 15 mg PO DAILY 02/22/24 02/24/24 Unknown History triamcinolone acetonide 0.5 % appl topical BID 02/22/24 Unknown History topical cream Exam Airway Mallampati Class: II TM Dist: <=3cm Neck ROM: Full Loose/Missing/Broken Teeth: No Heart: ok Lungs: ok Assessment and Plan Assessment Anesthesia Assessment: Anesthesia Plan Discussed Final Anesthetic Review Family History of Problems with Anesthesia: No History of Problems with Anesthesia: No NPO: Yes ASA Class: III Final Preanesthetic Review: No Changes in Pt Med Stat, Meds/Allgs Chart Reviewed, Consent Obtained/Reviewed and Anes Risks/Benef Reviewed Patient Risk: Intermediate Procedure Risk: Intermediate Anesthetic Plan Anesthetic Plan: Agree w/ Assess. and Plan and TIVA Disposition: Standard PACU
[2024-02-24 10:38] VITALS: BMI 21.1
[2024-02-24] MEDS: Lactated Ringers 1,000 ML 100 ML IVCONT (10:59)
[2024-02-24 11:00] VITALS: BP 142/59; PULSE 78; RESP 18; TEMP 36.7; O2SAT 99
--- NOTE | 2024-02-24 11:33 | MHC.SHP ---
Pre-Procedural Eval Section A - 24 Hr Update-Section A only Date of Service: 02/24/24 The patient is an INPATIENT: No Changes since office visit: No Cold of Flu in the past 2 weeks, No New Medical Problems, No Changes in Medication and No Patient answered all questions The patient has been examined within 24 hours of the surgical procedure. The History & Physical has been completed within 30 days and I have reviewed it.: Yes Section B - Complete if H&P > 30 days Chief Complaint: Abnormal findings on diagnostic imaging of other Allergies: Allergies Allergy/AdvReac Type Severity Reaction Status Date / Time butalbital [From CEPHADYN] Allergy Unknown HIVES Verified 02/24/24 11:13 cephalexin Allergy Unknown HIVES Verified 02/24/24 11:13 Plan I have reviewed the history and physical and performed a pertinent physical examination on my patient. No changes have occurred unless specified. Time Spent With Patient Time: Total time managing care of this patient today ____ minutes.
[2024-02-24 12:03] VITALS: BP 127/60; PULSE 112; RESP 18; TEMP 36.1; O2SAT 92
--- NOTE | 2024-02-24 12:10 | OP_ITS ---
DATE OF SERVICE: 02/24/2024 SURGEON: Davidson Anderson MD INDICATIONS: 1. Achalasia. 2. Abnormal upper GI series. PREOPERATIVE DIAGNOSIS: POSTOPERATIVE DIAGNOSIS: PROCEDURE PERFORMED: Upper endoscopy with balloon dilation. ESTIMATED BLOOD LOSS: COMPLICATIONS: ANESTHESIA: Monitored anesthesia care. ASSISTANTS: SPECIMENS: DESCRIPTION OF PROCEDURE: A history and physical was performed. The risks and benefits of the procedure were explained to the patient and informed consent was obtained. The patient was placed in the left lateral decubitus position. The Olympus video gastroscope was introduced into the esophagus, stomach, and duodenum. Examination was performed and the scope was removed. She tolerated the procedure well and was returned to recovery area in stable condition. FINDINGS: Esophagus: The esophagus was dilated consistent with her known diagnosis of achalasia. No food was present in the esophagus. The scope easily passed through the EG junction into the stomach. No stricture was identified. Stomach: The stomach was normal. Duodenum: The bulb and 2nd portion were normal. Balloon dilation of the lower esophageal sphincter to 20 mm was performed with a eisthkx-ekf-rcbec balloon inflated to its recommended pressure for 60 seconds and then removed. The EG junction appeared patent at the termination of the procedure with a small amount of heme at the site of the balloon dilation. No laceration was identified. IMPRESSION: Achalasia. RECOMMENDATION: Follow up as needed. MD NOE Rojas/AUSTEN / [phone]
[2024-02-24 12:15] VITALS: BP 144/72; PULSE 80; RESP 16; TEMP 36.1; O2SAT 97
[2024-02-24 12:29] VITALS: BP 144/72; PULSE 80; RESP 16; TEMP 36.1; O2SAT 97
== END 2024-02-24 12:53 | disposition home or self-care (01) ==
PROVIDERS: PCP Internal Medicine; Visit Provider Internal Medicine Gastroenterology
PROC: 0DJ08ZZ Inspection of Upper Intestinal Tract, Via Natural or Artificial Opening Endoscopic (ICD-10-PCS; CPT 43235; principal; 2024-02-24 12:30)
DX: K22.0 Achalasia of cardia (principal); R13.19 Other dysphagia; K22.2 Esophageal obstruction; K20.80 Other esophagitis without bleeding; E03.9 Hypothyroidism, unspecified; Z87.891 Personal history of nicotine dependence; Z79.899 Other long term (current) drug therapy
CPT/HCPCS: 43249; C1726; J2704

== ENCOUNTER 2024-07-13 11:02 | Outpatient (REF) | payer MEDICARE, SELFPAY ==
[2024-07-13 11:08] LABS: MANUAL DIFF FLAG NO
[2024-07-13 11:29] LABS: Appearance Urine Cloudy; Color Urine Yellow; Glucose Urine UA Negative (Negative); Leukocyte Esterase Urine Small (1+) (Negative); Nitrite Urine Positive (Negative); PH 7.5 (5.0-9.0); UMIC TRIGGER UACC YES; Urine Blood Negative (Negative); Urine Ketones Negative (Negative); Urine Protein Negative (Neg-Trace)
[2024-07-13 11:32] LABS: Basophils Percent Auto 0.7 % (0-2); Eosinophils Absolute Auto 0.3 X10*3/uL (0.0-0.4); Eosinophils Percent Auto 5.6 % (0-4); Hemoglobin 13.8 g/dl (12.0-16.0); Imm Gran Abs Auto 0.01 X10*3/uL (0.00-0.03); Imm Gran Pct Auto 0.2 % (0.0-0.4); Lymphocytes Absolute Auto 2.7 X10*3/uL (1.2-4.9); Lymphocytes Percent Auto 49.4 % (20-40); Mean Corpuscular HGB Conc 32.1 g/dl (31.0-35.0); Mean Corpuscular Volume 93.5 fL (80.0-98.0); Monocytes Absolute Auto 0.6 X10*3/uL (0.1-1.2); Monocytes Percent Auto 10.2 % (2-11); Neutrophils Absolute Auto 1.8 x10*3/uL (2.0-8.3); Neutrophils Percent Auto 33.9 % (45-73); Platelet Count 355 X10*3/uL (160-400); Red Cell Distribution Width 12.5 % (11.0-16.0); White Blood Count 5.4 X10*3/uL (4.8-10.8)
[2024-07-13 11:47] LABS: Bacteria Urine 3+ (None Seen); Hyaline Casts Urine 0-2 /LPF (0-2); RBC Urine 0-2 /HPF (0-2); Squamous Epithelial Cell Urine 0-2 /HPF (0-2); UACC Culture Trigger YES; WBC Urine 0-5 /HPF (0-5)
[2024-07-13 11:56] LABS: Estimated Average Glucose 111 mg/dL; Hemoglobin A1C 163.1753 umol/L; Hemoglobin A1c % 5.5 % (<6.0); Total Hemoglobin (HGBA1C) 4431.8227 umol/L
[2024-07-13 11:57] LABS: Alanine Aminotransferase 22 U/L (0-31); Alkaline Phosphatase 77 U/L (39-117); Anion Gap 11 (12-20); Aspartate Amino Transferase 31 U/L (5-31); Bilirubin Total 0.5 mg/dL (0.0-1.0); Blood Urea Nitrogen 19 mg/dL (9-16); Calcium 9.3 mg/dL (8.4-10.2); Carbon Dioxide 29 mmol/L (22-29); Chloride 104 mmol/L (96-108); Cholesterol 211 mg/dL (<200); Estimated Glomerular Filt Rate > 60; Glucose Fasting 92 mg/dL (60-99); HDL Cholesterol 67 mg/dL (>40); LDL Cholesterol Calculated 126 mg/dL (<100); Potassium 3.9 mmol/L (3.3-5.1); Sodium 140 mmol/L (135-145); TSH reflex Free T4 2.56 uIU/mL (0.32-4.0); Total Protein 7.5 g/dL (6.5-8.0); Triglycerides 90 mg/dL (<150)
--- OUTSIDE RECORDS SUMMARY | 2024-07-13 12:31 | XMS_ITS ---
Author Organization [facility] Address [address] [place] [address] Care Team Providers Care Counselor Supervisor Name Role Phone Danis Harden MD Primary Care Provider Davidson Mendoza Jr Unavailable [phone] ALLERGIES Allergen (clinical drug ingredient) Drug/Non Drug Allergy documented on EMR Reaction Allergy Type Onset Date Status Cephadyn hives Drug Allergy Active Keflex (uncoded) hives Allergy Act minoo REASON FOR VISIT Patient presents today for achalasia MEDICATIONS Medication SIG (Take, Route, Frequency, Duration) Notes Start Date End Date Status Calcium + D + K 750-500-40 MG-UNT-MCG 1 tablet with meals Orally Twice a day for 30 day(s) Active Omeprazole 20 MG 1 capsule Orally Onc e a day for 30 day(s) 06/17/2013 Active Vitamin D3 50 MCG (1999 UT) 1 tablet Ora lly Once a day Active Levothyroxine Sodium 50 MCG 1 tablet in the morning on an empty stomach Orally Once a day Active Meloxicam 15 MG 1 tablet Orally Once a day for 30 day(s) Active Urinary Health/Cranberry Active PROBLEMS Problem Type ICD Code Onset Dates Problem Status W/U Status Risk SNOMED Code Notes Problem Esophageal dysphagia (R13.19) Active confirmed 92115943 Problem Abnormal UGI series (R93.3) Active confirmed 662434712 Problem Encounter for long-term (current) use of NSAIDs (Z79.1) Active confirmed 559778422642512 VITAL SIGNS BMI 22.67 kg/m2 01/28/2024 Blood pressure systolic 000 mm Hg 01/28/20 24 Blood pressure diastolic 00 mm Hg 024 Height 64.25 in 01/28/2024 Temperature 98.2 degrees Fahrenheit 01/28/20 24 Weight 133 lb 2 oz lbs 01/28/2024 She reports she has been abl e to maintain her weight. Encounters Encounter Location Date Provider Diagnosis [facility] [address] [place] [address] 01/28/2024 Davidson Anderson Jr Esophageal dysphagia R13.19 ; Abnormal UGI series R93.3 and Encounter for long-term (current) use of NSAIDs Z79.1 ASSESSMENTS Encounter Date Diagnosis Assessment Notes Treatment Notes Treatment Clinical Notes 01/28/2024 Esophageal dysphagia (ICD-10 - R13.19) possible balloon dilation 01/28/2024 Abnormal UGI series (ICD-10 - R93.3) 01/28/2024 Encounter for long-term (current) use of NSAIDs (ICD-10 - Z79.1) PLAN OF TREATMENT Treatment Notes Assessment Notes Esophageal dysphagia possible balloon di lation Future Test Test Name Order Date UPPER GI ENDOSCOPY 01/28/2024 Next Appt Details Follow Up: 1 Year, Reason: Progress Notes * Examination Category Sub-Category Detail Notes General Examination GENERAL APPEARANCE: in no ac krishan distress HEAD: normocephalic EYES: sclera non-icteric NECK/THYROID: no lymphadenopathy HEART: S1, S2 normal, no mu rmurs CHEST: normal shape and exp ansion LUNGS: clear to auscultatio n bilaterally ABDOMEN: soft, nontender, non distended, bowel sounds present, no organomegaly SKIN: anicteric EXTREMITIES: no clubbing, cyanosi s, or edema PSYCH: cognitive function i ntact ORAL CAVITY: mucosa moist
--- OUTSIDE RECORDS SUMMARY | 2024-07-13 12:32 | XMS_ITS ---
Author Organization Danis Harden MD Address [address] [place], [place] [id number] Care Team Providers Care Supervisor Statement Clerks Name Role Phone Danis Harden Primary Care Provider REASON FOR VISIT ER Encounters Encounter Location Date Provider Diagnosis Danis Harden MD [address] [facility] [address] [place] [phone] 01/26/2024 Danis Harden Plan Of Treatment Next Appt Details Provider Name:Danis Lester ier, 07/26/2024 09:30:00 AM, [address] [place] [address], [address], [place], [place], [phone], Progress Notes * Klaudia ZAVALA ADOB: (84 yo F)Acc No.[id number]:01/26/2024 Patient:?Klaudia Zavala Jose :1940???Age:84 Y???Sex:Female Address:[address] [address] * true * Date:? Generated for Printi ng/Faxing/eTransmitting on:?07/13/2024 12:31 PM EST
--- OUTSIDE RECORDS SUMMARY | 2024-07-13 12:32 | XMS_ITS ---
Author Organization Danis Harden MD Address [address] [place], [place] [id number] Care Team Providers Care Spring Tester Name Role Phone Danis Harden Primary Care Provider Results Component Value Reference Range Notes Complete Blood Count Auto Di ff (Not yet reviewed by provider) Interpretation: Performing Lab:[facility], [address] [place] [id number] Notes/Report: White Blood Count 5.4 4.8-10.8 X10*3/uL Red Blood Count 4.60 4.20-5.50 X10*6/uL Hemoglobin 13.8 12.0-16.0 g/dl Hematocrit 43.0 37.0-47.0 % Mean Corpuscular Volume 93.5 80.0-98.0 fL Mean Corpuscular Hemoglobin 30.0 27.0-33.0 pg Mean Corpuscular HGB Conc 32.1 31.0-35.0 g/dl Red Cell Distribution Width 12.5 11.0-16.0 % Platelet Count 355 160-400 X10*3/uL Mean Platelet Volume 9.0 9.4-12.3 fL Neutrophils Percent Auto 33.9 45-73 % Imm Gran Pct Auto 0.2 0.0-0.4 % Lymphocytes Percent Auto 49.4 20-40 % Monocytes Percent Auto 10.2 2-11 % Eosinophils Percent Auto 5.6 0-4 % Basophils Percent Auto 0.7 0-2 % NRBC Pct Auto 0.0 0.0-0.2 /100WBC Neutrophils Absolute Auto 1.8 2.0-8.3 x10*3/u L Imm Gran Abs Auto 0.01 0.00-0.03 X10*3/uL Lymphocytes Absolute Auto 2.7 1.2-4.9 X10*3/u L Monocytes Absolute Auto 0.6 0.1-1.2 X10*3/uL Eosinophils Absolute Auto 0.3 0.0-0.4 X10*3/u L Basophils Absolute Auto 0.0 0.0-0.2 X10*3/uL NRBC Abs Auto 0.000 0.0-0.012 X10*3/uL Hemoglobin A1c (Not yet revi ewed by provider) Interpretation: Performing Lab:[address] [id number] Notes/Report: Hemoglobin A1c % 5.5 <6.0 % Hemoglobin A1C Reference Range Adults: 4.8 - 6.0 % Non diabetic: < 6.0 % Goal: < 7.0 % Additional Action Suggested: > 8.0 % Note: Hemoglobin A1c results are invalid for patients with abnormal amounts of HbF. Blood transfusions may impact the HbA1c concentration in the patient sample. Estimated Average Glucose 111 eAG = Estimated average glucose which is %A1C expressed as average glucose, using the formula of the J4T-Nrisuls Average Glucose study (ADAG), Diabetes Care, Vol.31,#8, Dec. 2007 UA ClnCatch+Micro w/rflx Cul t (Not yet reviewed by provider) Interpretation: Performing Lab:[address] [id number] Notes/Report: Urine, Clean Catch Color Urine Yellow Appearance Urine Cloudy PH 7.5 5.0-9.0 Glucose Urine UA Negative Negative mg/dL Urine Blood Negative Negative Specific [place] - Urine 1.010 1.005-1.025 Urine Protein Negative Neg-Trace mg/dL Urine Ketones Negative Negative mg/dL Nitrite Urine Positive Negative Leukocyte Esterase Urine Small (1+) Negative RBC Urine 0-2 0-2 /HPF WBC Urine 0-5 0-5 /HPF Squamous Epithelial Cell Urine 0-2 0-2 /HPF Bacteria Urine 3+ None Seen Hyaline Casts Urine 0-2 0-2 /LPF REASON FOR VISIT yearly fasting labs Encounters Encounter Location Date Provider Diagnosis Danis Harden MD [address] [facility] [address] [place], [place] [phone] 07/13/2024 Danis Harden Acquired hypothyroidism E03.9 and Prediabetes R73.09 Assessments Encounter Date Diagnosis (ICD Code) Assessment Notes Treatment Notes Treatment Clinical Notes Section Notes 07/13/2024 Acquired hypothyroidism (ICD-10 - E03.9) 07/13/2024 Prediabetes (ICD-10 - R73.09) Plan Of Treatment Pending Test Test Name Order Date Complete Blood Count Auto Diff Comprehensive [place]. Panel Fast Lipid Panel 07/13/2024 TSH reflex Free T4 07/13/2024 Microalbumin, Random 07/13/2024 Hemoglobin A1c 07/13/2024 UA ClnCatch+Micro w/rflx Cult 07/13/2024 Next Appt Details Provider Name:Danis Lester ier, 07/26/2024 09:30:00 AM, [address] [place] [address], [address], [place], [place], [phone], Progress Notes * Klaudia ZAVALA ADOB: (84 yo F)Acc No.[id number]:07/13/2024 Progress Note Patient:?MARCIOKARLO Klaudia A Provider:?Danis Harden MD :1940???Age:84 Y???Sex:Female D ate:07/13/2024 Address:[address] [place] [address] [id number] Subjective: * Chief Complaints: * ???1. Yearly fasting labs. * Medical History:? Objective: * Vitals:? Assessment: * Assessment: 1.?Acquired hypothyroidism - E03.9 (Primary)???2.?Prediabetes - R73.09??? Plan: * Treatment: 2.?Prediabetes?LAB: Complete Blood Count Auto Diff (Collection Date & Time - 07/13/2024 07:15 AM) ?LAB: Comprehensive [place]. Panel Fast ?LAB: Lipid Panel ?LAB: TSH reflex Free T4 ?LAB: Microalbumin, Random ?LAB: Hemoglobin A1c (Collection Date & Time - 07/13/2024 07:15 AM) ?LAB: UA ClnCatch+Micro w/rflx Cult (Collection Date & Time - 07/13/2024 07:15 AM) * Procedure Codes:?73196 VENIP UNCT, ROUTINE* * * The named appointment provid er may or may not be the originator of this progress note, and it is not deemed complete until electronically signed by the appointment provider. Sign off status: Pending * Provider:?Danis Harden MD Date:?0 07/13/2024 Generated for Ruperto pollock/Buster/Grabielitting on:?07/13/2024 12:32 PM EST
--- OUTSIDE RECORDS SUMMARY | 2024-07-13 12:33 | XMS_ITS | Patient Health Record ---
Author Organization [facility] Address [address] [place] [address] Care Team Providers Care Career Technical Supervisor Name Role Phone Danis Harden MD Primary Care Provider Davidson Mendoza Jr Unavailable ALLERGIES Allergen (clinical drug ingredient) Drug/Non Drug Allergy documented on EMR Reaction Allergy Type Onset Date Status Cephadyn hives Drug Allergy Active Keflex (uncoded) hives Allergy Act minoo REASON FOR REFERRAL No Information MEDICATIONS Medication SIG (Take, Route, Frequency, Duration) [...] for 30 day(s) Active Urinary Health/Cranberry Active IMMUNIZATIONS Vaccine Route Administration Date Status Comme nts Influenza Unknown 02/10/2019 Administered Influenza Unknown 04/22/2023 Administered SOCIAL HISTORY Sex Assigned At : Social History Observation Description Sex Assigned At Unknown PROBLEMS Problem Type ICD Code Onset Dates Problem Status W/U Status Risk SNOMED Code Notes Problem Rectal bleeding (569.3) Active confirmed Rectal bleeding (74912160) Problem Colon cancer screening (V76.51) Active confirmed 264731821 Problem Colon cancer screening (Z12.11) Active confirmed 947472754 Problem long term (current) use of aspirin (Z79.82) Active confirmed 406214852104082 Problem Esophageal dysphagia (R13.19) Active confirmed 21846447 Problem Abnormal UGI series (R93.3) Active confirmed 899907426 Problem Encounter for long-term (current) use of NSAIDs (Z79.1) Active confirmed 900320313668090 Problem Achalasia (K22.0) Active confirmed Achalasia (67251487) VITAL SIGNS Temperature 98.2 degrees Fahrenheit 01/28/2024 She reports she has been able to maintain her weight. Blood pressure diastolic 00 mm Hg 01/28/2024 She reports she has been able to maintain her weight. Height 64.25 in 01/28/2024 She reports she has been able to maintain her weight. Blood pressure systolic 000 mm Hg 01/28/2024 She reports she has been able to maintain her weight. Weight 133 lb 2 oz lbs 01/28/2024 She reports she has been able to maintain her weight. BMI 22.67 kg/m2 01/28/2024 She reports she has been able to maintain her weight. Encounters Encounter Location Date Provider Diagnosis [facility] [place] [address] [place] [phone] 02/24/2024 Davidson Anderson Jr Esophageal dysphagia R13.19 ; Abnormal CT scan, esophagus R93.3 and Achalasia K22.0 [facility] [address] [facility] [address] [place] [address] 01/28/2024 Davidson Anderson Jr Esophageal dysphagia R13.19 ; Abnormal UGI series R93.3 and Encounter for long-term (current) use of NSAIDs Z79.1 ASSESSMENTS Encounter Date Diagnosis Assessment Notes Treatment Notes Treatment Clinical Notes 02/24/[address] scan, esophagus (ICD-10 - R93.3) 02/24/2024 Esophageal dysphagia (ICD-10 - R13.19) 01/28/2024 Abnormal UGI series (ICD-10 - R93.3) 01/28/2024 Esophageal dysphagia (ICD-10 - R13.19) possible balloon dilation 02/24/2024 Achalasia (ICD-10 - K22.0) 01/28/2024 Encounter for long-term (current) use of NSAIDs (ICD-10 - Z79.1) PLAN OF TREATMENT Future Test Test Name Order Date COLONOSCOPY 06/17/2013 COLONOSCOPY 07/14/2019 UPPER GI ENDOSCOPY 01/28/2024 Insurance Providers Payer Name Payer Address Payer Phone Subscriber Number Group Number Insured Name Patient Relationship to Insured Coverage Start Date Coverage End Date MEDICARE OF [place] [address] [place] [id number] AUSTEN ROSENBERG Self - patient is the insured [employer] ATTN CLAIMS [address] [place] [address] [id number] MARCIOKARLO AUSTEN Self - patient is the insured MEDICAL (GENERAL) HISTORY Medical History History ICD Code Upper endoscopy 01/19, surgical changes, normal mucosal Colonoscopy 01/19, normal, 2 benign polyp s Achalasia hypothyroidism Surgical History Surgery Date(Month/Year) Partial thyroidectomy for precancerous l esion 12/10/2004 Laparoscopic Heller myotomy 12/18/2009 cataract-lens implants
--- OUTSIDE RECORDS SUMMARY | 2024-07-13 12:33 | XMS_ITS ---
Author Organization Danis Harden MD Address [address] [place], [place] [id number] Care Team Providers Care Car Distributor Name Role Phone Danis Harden Primary Care Provider [phone] Allergies Allergen (clinical drug ingredient) Drug/Non Drug Allergy documented on EMR Reaction Allergy Type Onset Date Status paroxetine Paxil nausea Drug Allergy Active Keflex hives Drug Allergy Active Cephadyn hives Drug Allergy Active REASON FOR VISIT must see GI results, NO Covid symptoms Medications Medication SIG (Take, Route, Frequency, Duration) Notes Start Date End Date Status Ciclopirox 0.77% as directed applied topically twice a day for 30 days 07/24/2023 Active Triamcinolone Acetonide 0.5 % 1 application Externally Twice a day for 14 days 08/22/2023 Active Meloxicam 15 MG TAKE 1 TABLET BY TRACY TH EVERY DAY Active Magnesium 500 MG 1 tablet with a meal Orally Once a day for 30 day(s) Active Vitamin D-3 1000 UNIT 1 capsule Orally O nce a day Active Levothyroxine Sodium 50 MCG TAKE 1 TABLE T BY MOUTH EVERY DAY IN THE MORNING ON AN EMPTY STOMACH for 90 Active Vital Signs Blood pressure systolic 122 mm Hg 10/13/19 24 Blood pressure diastolic 60 mm Hg 05/13/2 024 Height 64.50 in 10/13/2023 Weight 135 lbs 10/13/2023 BMI 22.81 kg/m2 10/13/2023 Encounters Encounter Location Date Provider Diagnosis Danis Harden MD [address] [place] [address] [place] [phone] 10/13/2023 Danis Harden Reflux esophagitis K21.00 and Achalasia K22.0 Assessments Encounter Date Diagnosis (ICD Code) Assessment Notes Treatment Notes Treatment Clinical Notes Section Notes 10/13/2023 Reflux esophagitis (ICD-10 - K21.00) 10/13/2023 Achalasia (ICD-10 - K22.0) at this point is doing well will just observe/ went over the ugi in detail. 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 has a patulent esophagus which is most likely the source of her symptoms. not certain as to the cause of the sudden worsening. she may have had vagal stimulation form the esophagus benong flilled with food as to the cause of the general malaise. will observe Plan Of Treatment Treatment Notes Assessment Notes Achalasia at this point is doi ng well will just observe/ went over the ugi in detail. 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 has a patulent esophagus which is most likely the source of her symptoms. not certain as to the cause of the sudden worsening. she may have had vagal stimulation form the esophagus benong flilled with food as to the cause of the general malaise. will observe Next Appt Details Provider Name:Danis Lester ier, 07/26/2024 09:30:00 AM, [address] [place] [address], [address], [place], [place], [phone], Progress Notes * Klaudia ZAVALA ADOB: (83 yo F)Acc No.[id number]:10/13/2023 Patient:?Klaudia Zavala A Provider:?Danis Harden MD :1940???Age:83 Y???Sex:Female D ate:10/13/2023 Address:[facility] [place] Subjective: * Chief Complaints: * ???must see GI resultsNO Cov id symptoms * HPI: ???Symptom(s):? patient is a 83 yo female here for GI issues, had gone out to eat and kept vomiting the food that she ate for 3 days. * ROS:?General/Constitutional:?Denies?Chills.?Denies?Fatigue.?Denies?Fever.?Denies?Headache.?ENT:?Patient denies?decreased sense of smell , any loss of taste , sore throat.?Denies?Sore throat.?Respiratory:?Denies?Cough.?Denies?Shortness of breath at rest.?Denies?Shortness of breath with exertion.?Gastrointestinal:?Denies?Diarrhea.?Denies?Nausea.?Musculoskeletal:?Patient denies?muscle aches.?Peripheral Vascular:?Patient denies?red and blue toes.? * Medical History:? * Surgical History:? * Hospitalization/Major Diagno stic Procedure:? * Medications:?TakingCiclopiro x 0.77% cream as directed applied topically twice a dayMagnesium 500 MG Tablet 1 tablet with a meal Orally Once a dayVitamin D-3 1000 UNIT Tablet 1 capsule Orally Once a dayMeloxicam 15 MG Tablet TAKE 1 TABLET BY MOUTH EVERY DAY Levothyroxine Sodium 50 MCG Tablet TAKE 1 TABLET BY MOUTH EVERY DAY IN THE MORNING ON AN EMPTY STOMACH Triamcinolone Acetonide 0.5 % Cream 1 application Externally Twice a dayMedication List reviewed and reconciled with the patientTaking Ciclopirox 0.77% cream as directed applied topically twice a dayTaking Magnesium 500 MG Tablet 1 tablet with a meal Orally Once a dayTaking Vitamin D-3 1000 UNIT Tablet 1 capsule Orally Once a dayTaking Meloxicam 15 MG Tablet TAKE 1 TABLET BY MOUTH EVERY DAY Taking Levothyroxine Sodium 50 MCG Tablet TAKE 1 TABLET BY MOUTH EVERY DAY IN THE MORNING ON AN EMPTY STOMACH Taking Triamcinolone Acetonide 0.5 % Cream 1 application Externally Twice a dayMedication List reviewed and reconciled with the patient * Allergies:?Cephadyn: hivesKe flex: hivesPaxil: nauseayes[Allergies Verified] Objective: * Vitals:?Ht: 64.50, Wt:135, B ND:22.81, BP:122/60. * Examination: ???General Examination: ?GENERAL APPEARANCE:? alert, well hydrated, in no distress , female.?HEAD:? normocephalic.?SKIN:? good turgor.?HEART:? no murmurs, rubs, gallops, regular rate and rhythm.?LUNGS:? no wheezes, rales, rhonchi, good air movement, clear to auscultation bilaterally.?ABDOMEN:? soft, nontender, nondistended, no rebound tenderness.? Assessment: * Assessment: 1.?Reflux esophagitis - K21. 00 (Primary)?2.?Achalasia - K22.0? Plan: * Treatment: * Procedure Codes:? * * Sign off status: Completed true * Provider:?Danis Harden MD Date:?0 10/13/2023 Generated for Ruperto pollock/Buster/eTgalsmitting on:?07/13/2024 12:32 PM EST History and Physical Notes * HPI (History of Present Illness) Category Sub-Category Detail Notes Category Not es Symptom(s) patient is a 83 yo female here for GI issues, had gone out to eat and kept vomiting the food that she ate for 3 days. Examination Category Sub-Category Detail Notes Category Not es General Examination GENERAL APPEARANCE: alert, w ell hydrated, in no distress , female HEAD: normocephalic HEART: no murmurs, rubs, ga llops, regular rate and rhythm LUNGS: no wheezes, rales, r honchi, good air movement, clear to auscultation bilaterally ABDOMEN: soft, nontender, non distended, no rebound tenderness SKIN: good turgor
--- OUTSIDE RECORDS SUMMARY | 2024-07-13 12:33 | XMS_ITS ---
Author Organization [facility] Address [address] [place] [address] Care Team Providers Care Spool Tender Name Role Phone Fina PARKER, Danis Primary Care Provider Davidson Mendoza Jr REASON FOR VISIT esophageal dysphagia, abn ugi series PROBLEMS Problem Type ICD Code Onset Dates Problem Status W/U Status Risk SNOMED Code Notes Problem Achalasia (K22.0) Active confirmed Achalasia (22596933) Encounters Encounter Location Date Provider Diagnosis [facility] [address] [place], [place] [phone] 02/24/2024 Davidson Anderson Jr Esophageal dysphagia R13.19 ; Abnormal CT scan, esophagus R93.3 and Achalasia K22.0 ASSESSMENTS Encounter Date Diagnosis Assessment Notes Treatment Notes Treatment Clinical Notes 02/24/2024 Esophageal dysphagia (ICD-10 - R13.19) 02/24/[address] scan, esophagus (ICD-10 - R93.3) 02/24/2024 Achalasia (ICD-10 - K22.0) PLAN OF TREATMENT No Information
[2024-07-13 13:15] LABS: Creatinine Urine 53.29 mg/dL; Microalbumin Urine < 5.0 mg/L
== END 2024-07-13 11:03 | disposition home or self-care (01) ==
LOC: HO.LNP 11:02
PROVIDERS: Visit Provider Internal Medicine
DX: E03.9 Hypothyroidism, unspecified (principal); R73.09 Other abnormal glucose
CPT/HCPCS: 80053; 80061; 81001; 82043; 82570; 83036; 84443; 85025; 87086

== ENCOUNTER 2024-07-26 12:57 | Outpatient (REF) | payer MEDICARE, SELFPAY ==
[2024-07-26 13:02] LABS: MANUAL DIFF FLAG NO
[2024-07-26 13:08] LABS: Basophils Percent Auto 0.7 % (0-2); Eosinophils Absolute Auto 0.2 X10*3/uL (0.0-0.4); Eosinophils Percent Auto 3.9 % (0-4); Hematocrit 38.9 % (37.0-47.0); Hemoglobin 12.8 g/dl (12.0-16.0); Imm Gran Abs Auto 0.01 X10*3/uL (0.00-0.03); Imm Gran Pct Auto 0.2 % (0.0-0.4); Lymphocytes Absolute Auto 2.3 X10*3/uL (1.2-4.9); Lymphocytes Percent Auto 37.3 % (20-40); Mean Corpuscular HGB Conc 32.9 g/dl (31.0-35.0); Mean Corpuscular Hemoglobin 30.2 pg (27.0-33.0); Mean Corpuscular Volume 91.7 fL (80.0-98.0); Mean Platelet Volume 9.1 fL (9.4-12.3); Monocytes Absolute Auto 0.5 X10*3/uL (0.1-1.2); Monocytes Percent Auto 8.1 % (2-11); Neutrophils Percent Auto 49.8 % (45-73); Platelet Count 292 X10*3/uL (160-400); Red Blood Count 4.24 X10*6/uL (4.20-5.50); Red Cell Distribution Width 12.6 % (11.0-16.0); White Blood Count 6.1 X10*3/uL (4.8-10.8)
[2024-07-26 13:38] LABS: Vitamin D 25-OH Total 79.1 ng/mL (>30)
--- OUTSIDE RECORDS SUMMARY | 2024-07-26 14:42 | XMS_ITS ---
Author Organization [facility] Address [address] [place] [address] Care Team Providers Care Surgical Corsetier Name Role Phone Danis Harden MD Primary [...] Notes Problem Esophageal dysphagia (R13.19) Active confirmed 50177397 Problem Abnormal UGI series (R93.3) Active confirmed 648855392 Problem Encounter for long-term (current) use of NSAIDs (Z79.1) Active confirmed 709144922404403 VITAL SIGNS Temperature 98.2 degrees Fahrenheit 01/28/20 24 Blood pressure systolic 000 mm Hg 01/28/20 24 Blood pressure diastolic 00 mm Hg 024 Height 64.25 in 01/28/2024 Weight 133 lb 2 oz lbs 01/28/2024 BMI 22.67 kg/m2 01/28/2024 She reports she has been abl e to maintain her weight. Encounters Encounter Location Date Provider Diagnosis [facility] [address] [place] [address] 01/28/2024 Davidson Anderson Jr Esophageal dysphagia R13.19 [...]
--- OUTSIDE RECORDS SUMMARY | 2024-07-26 14:42 | XMS_ITS ---
Author Organization Danis Harden MD Address [address] [facility] [address] [place] [phone] Care Team Providers Care Jet Mechanic Name Role Phone Danis Harden Primary Care Provider REASON FOR VISIT ER Encounters Encounter Location Date Provider Diagnosis Danis Harden MD [address] [facility] [address] [place] [phone] 01/26/2024 Danis Harden Plan Of Treatment Next Appt Details Provider Name:Danis goodman, 01/24/2025 10:00:00 AM, [address] [place] [address], [address] [place] [address], [phone], Provider Name:Danis goodman, 07/22/2025 07:15:00 AM, [address] [place] [address], [address], [phone], Provider Name:Danis goodman, 07/29/2025 09:30:00 AM, [address] [place] [address], [address], [phone], Progress Notes * Klaudia ZAVALA ADOB: (84 yo F)Acc No.[id number]:01/26/2024 Patient:?Klaudia Zavala :1940???Age:84 Y???Sex:Female Address:[address] [place] [address], [place] [address] * true * Date:? Generated for Mayoi maris/Buster/eTransmitting on:?07/26/2024 02:42 PM EST
--- OUTSIDE RECORDS SUMMARY | 2024-07-26 14:43 | XMS_ITS | Patient Health Record ---
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 Encounters Encounter Location Date Provider Diagnosis [facility] [place] [facility] [address] [place] [phone] 02/24/2024 Davidson Anderson Jr Esophageal dysphagia R13.19 ; Abnormal CT scan, esophagus R93.3 and Achalasia K22.0 [facility] [address] [facility] [address] [place] [address] 01/28/2024 Davidson Anderson Jr Esophageal dysphagia R13.19 [...] OF [place] [address] [place] [address] [id number] AUSTEN ROSENBERG Self - patient is the insured [employer] CLAIMS [address] [place] [address] [id number] MARCIOKARLO AUSTEN Self - patient is the insured MEDICAL (GENERAL) HISTORY Medical History History ICD Code Upper endoscopy 01/19, surgical changes, normal mucosal Colonoscopy 01/19, normal, 2 benign polyp s Achalasia hypothyroidism Surgical History Surgery Date(Month/Year) Partial thyroidectomy for precancerous l esion 12/10/2004 Laparoscopic Heller myotomy 12/18/2009 cataract-lens implants
--- OUTSIDE RECORDS SUMMARY | 2024-07-26 14:43 | XMS_ITS ---
Author Organization [facility] Address [address] [place] [address] Care Team Providers Care Smasher Hand Name Role Phone Fina PARKER, Danis Primary Care Provider Davidson Mendoza Jr REASON FOR VISIT esophageal dysphagia, abn ugi series PROBLEMS Problem Type ICD Code Onset Dates Problem Status W/U Status Risk SNOMED Code Notes Problem Achalasia (K22.0) Active confirmed Achalasia (81015315) Encounters Encounter Location Date Provider Diagnosis [facility] [place] Out[facility] [address] [place], [place] [phone] 02/24/2024 Davidson Anderson Jr Esophageal dysphagia R13.19 ; Abnormal CT scan, esophagus R93.3 and Achalasia K22.0 ASSESSMENTS Encounter Date Diagnosis Assessment Notes Treatment Notes Treatment Clinical Notes 02/24/2024 Esophageal dysphagia (ICD-10 - R13.19) 02/24/[address] scan, esophagus (ICD-10 - R93.3) 02/24/2024 Achalasia (ICD-10 - K22.0) PLAN OF TREATMENT No Information
--- OUTSIDE RECORDS SUMMARY | 2024-07-26 14:43 | XMS_ITS ---
Author Organization Danis Harden MD Address [address] [place], [place] [id number] Care Team Providers Care Communication Clerk Name Role Phone Danis Harden Primary Care Provider [phone] Allergies Allergen (clinical drug ingredient) Drug/Non Drug Allergy documented on EMR Reaction Allergy Type Onset Date Status paroxetine Paxil nausea Drug Allergy Active Keflex hives Drug Allergy Active Cephadyn hives Drug Allergy Active Results Component Value Reference Range Notes Complete Blood Count Auto Di ff (Not yet reviewed by provider) Interpretation: Performing Lab:[facility], [address] [place] [id number] Notes/Report: White Blood Count 6.1 4.8-10.8 X10*3/uL Red Blood Count 4.24 4.20-5.50 X10*6/uL Hemoglobin 12.8 12.0-16.0 g/dl Hematocrit 38.9 37.0-47.0 % Mean Corpuscular Volume 91.7 80.0-98.0 fL Mean Corpuscular Hemoglobin 30.2 27.0-33.0 pg Mean Corpuscular HGB Conc 32.9 31.0-35.0 g/dl Red Cell Distribution Width 12.6 11.0-16.0 % Platelet Count 292 160-400 X10*3/uL Mean Platelet Volume 9.1 9.4-12.3 fL Neutrophils Percent Auto 49.8 45-73 % Imm Gran Pct Auto 0.2 0.0-0.4 % Lymphocytes Percent Auto 37.3 20-40 % Monocytes Percent Auto 8.1 2-11 % Eosinophils Percent Auto 3.9 0-4 % Basophils Percent Auto 0.7 0-2 % NRBC Pct Auto 0.0 0.0-0.2 /100WBC Neutrophils Absolute Auto 3.0 2.0-8.3 x10*3/u L Imm Gran Abs Auto 0.01 0.00-0.03 X10*3/uL Lymphocytes Absolute Auto 2.3 1.2-4.9 X10*3/u L Monocytes Absolute Auto 0.5 0.1-1.2 X10*3/uL Eosinophils Absolute Auto 0.2 0.0-0.4 X10*3/u L Basophils Absolute Auto 0.0 0.0-0.2 X10*3/uL NRBC Abs Auto 0.000 0.0-0.012 X10*3/uL Vitamin D 25-OH Total (Not y et reviewed by provider) Interpretation: Performing Lab:[facility], [address] [place] [id number] Notes/Report: Vitamin D 25-OH Total 79.1 >30 ng/mL Health Based Reference Values* < 20 ng/mL Deficient 20-30 ng/mL Insufficient > 30 ng/mL Sufficient *Cam PAUL. N Engl J Med. 2007;357:266-280 Care must be taken in interpreting Vitamin D results from different laboratories and methodologies. Published data demonstrated that results from patients undergoing hemodialysis may show a negative bias when tested with various automated 25-OH vitamin D assays when compared to LC-MS/MS. When testing samples from patients whose predominant form of Vitamin D is Vitamin D2, such as patients receiving Vitamin D2 supplementation, results that are subtherapeutic should be confirmed with another method such as LC-MS/MS. REASON FOR VISIT comp visit, Repeat CBC Medications Medication SIG (Take, Route, Frequency, Duration) Notes Start Date End Date Status Vitamin D-3 1000 UNIT 1 capsule Orally O nce a day Active Magnesium 500 MG 1 tablet with a meal Orally Once a day for 30 day(s) Active Levothyroxine Sodium 50 MCG TAKE 1 TABLE T BY MOUTH EVERY DAY IN THE MORNING ON AN EMPTY STOMACH Orally Once a day for 90 days Active Triamcinolone Acetonide 0.5 % 1 application Externally Twice a day for 90 days 08/22/2023 Active Ciclopirox 0.77% as directed applied topically twice a day for 30 days 07/24/2023 Active Meloxicam 15 MG TAKE 1 TABLET BY TRACY TH EVERY DAY Orally Once a day for 90 days Active Social History Tobacco Use: Social History Observation Description Date Details (start date - stop date) Former Smoker NA - NA Tobacco Use/Smoking Question Answer Notes Patient is a former smoker How long has it been since y ou last smoked? > 10 years Additional Findings: Tobacco Non-User Fo rmer smoker, currently using no form of tobacco Alcohol Screen Question Answer Notes Did you have a drink contain ing alcohol in the past year? Yes How often did you have a dri nk containing alcohol in the past year? Monthly or less (1 point) How many drinks did you have on a typical day when you were drinking in the past year? 1 or 2 drinks (0 point) How often did you have 6 or more drinks on one occasion in the past year? Never (0 point) Points 1 Interpretation Negative Vital Signs Blood pressure systolic 132 mm Hg 07/26/19 25 Blood pressure diastolic 58 mm Hg 025 Height 64.50 in 07/26/2024 Weight 134 lbs 07/26/2024 BMI 22.64 kg/m2 07/26/2024 Encounters Encounter Location Date Provider Diagnosis Danis Harden MD [address] [place] [address] [place] [phone] 07/26/2024 Danis Harden Lymphocytosis D72.82 0 ; Acquired hypothyroidism E03.9 ; History of vitamin D deficiency Z86.39 ; Achalasia K22.0 ; Mild eczema L30.9 and Cervical disc disease M50.90 Assessments Encounter Date Diagnosis (ICD Code) Assessment Notes Treatment Notes Treatment Clinical Notes Section Notes 07/26/2024 Lymphocytosis (ICD-10 - D72.820) will continue to monitor, pending labs 07/26/2024 Acquired hypothyroidism (ICD-10 - E03.9) stable, will continue current regiment 07/26/2024 History of vitamin D deficiency (ICD-10 - Z86.39) pending labs 07/26/2024 Achalasia (ICD-10 - K22.0) 07/26/2024 Mild eczema (ICD-10 - L30.9) 07/26/2024 Cervical disc disease (ICD-10 - M50.90) Plan Of Treatment Medication Medication Name Sig Start Date Stop Date Notes Levothyroxine Sodium 50 MCG TAKE 1 TABLE T BY MOUTH EVERY DAY IN THE MORNING ON AN EMPTY STOMACH Orally Once a day for 90 days Triamcinolone Acetonide 0.5 % 1 applicat ion Externally Twice a day for 90 days 08/22/2023 Meloxicam 15 MG TAKE 1 TABLET BY TRACY TH EVERY DAY Orally Once a day for 90 days Treatment Notes Assessment Notes Lymphocytosis will continue to mon itor, pending labs Acquired hypothyroidism stable, will con tinue current regiment History of vitamin D deficiency pending labs Pending Test Test Name Order Date Complete Blood Count Auto Diff Vitamin D 25-OH Total 07/26/2024 Next Appt Details Follow Up: 6 Months, Reason: Provider Name:Danis goodman, 01/24/2025 10:00:00 AM, [address] [place] [address], [address], [phone], Provider Name:Danis goodman, 07/22/2025 07:15:00 AM, [address] [place] [address], [address], [phone], Provider Name:Danis goodman, 07/29/2025 09:30:00 AM, [address] [place] [address], [address], [phone], Progress Notes * Klaudia ZAVALA ADOB: (84 yo F)Acc No.[id number]:07/26/2024 Patient:?CHETJanetteKlaudia A Provider:?Danis Harden MD :1940???Age:84 Y???Sex:Female D ate:07/26/2024 Address:[address] [place], [place] [address], [id number] Subjective: * Chief Complaints: * ???1. Comp visit. 2. Repeat CBC. * HPI: ???Depression Screening:?PHQ-9?Little interest or pleasure in doing things?Not at all,?Feeling down, depressed, or hopeless?Not at all,?Trouble falling or staying asleep, or sleeping too much?Not at all,?Feeling tired or having little energy?Not at all,?Poor appetite or overeating?Not at all,?Feeling bad about yourself or that you are a failure, or have let yourself or your family down?Not at all,?Trouble concentrating on things, such as reading the newspaper or watching television?Not at all,?Moving or speaking so slowly that other people could have noticed; or the opposite, being so fidgety or restless that you have been moving around a lot more than usual?Not at all,?Thoughts that you would be better off or of hurting yourself in some way?Not at all,?Total Score?0.?Interpretation and Intervention?Depression Screening Findings?Negative,?Follow-Up for Depression?: review of PHQ-9 found negative result, no follow-up needed.?Communication Needs:?Communication Needs?Does the patient have a hearing impairment?No,?Does the patient have a vision impairment??Yes,?If yes, what is the vision impairment??Glasses,?Does the patient have a cognition impairment??No.?Fall Risk:?History?Have you had any falls with injury in the past year??No,?Have you had two or more falls in the past year??No.?SDOH Questions:?SDOH Questions?In the past year have you been worried about losing housing??No,?In the past year have you or any family members you live with been unable to get any of the following when it was really needed? Check all that apply:?None.?Symptom(s):? patient is a 84 yo female here for review of recent labs and follow up of chronic issues, . gets tired and gets spasms. breakfast and lunch can eat but supper gets inability to eat and is tired.? had endoscopy 8 months ago. * ROS:?General/Constitutional:?Patient denies?fatigue, headache.?Change in appetite?denies.?Chills?denies.?Fever?denies.?Ophthalmologic:?Blurred vision?denies.?Discharge?denies.?Pain?denies.?ENT:?Patient denies?decreased sense of smell, any loss of taste, sore throat.?Decreased hearing?denies.?Sore throat?denies.?Swollen glands?denies.?Endocrine:?Cold intolerance?denies.?Excessive thirst?denies.?Heat intolerance?denies.?Weight loss?denies.?Respiratory:?Cough?denies.?Shortness of breath at rest?denies.?Shortness of breath with exertion?denies.?Wheezing?denies.?Cardiovascular:?Chest pain at rest?denies.?Chest pain with exertion?denies.?Irregular heartbeat?denies.?Shortness of breath?denies.?Gastrointestinal:?Abdominal pain?denies.?Change in bowel habits?denies.?Diarrhea?denies.?Nausea?denies.?Rectal bleeding?denies.?Vomiting?denies .?Genitourinary:?Blood in urine?denies.?Difficulty urinating?denies.?Frequent urination?denies.?Urinary incontinence?Denies.?Musculoskeletal:?Patient denies?muscle aches.?Painful joints?denies.?Weakness?denies.?Peripheral Vascular:?Patient denies?red and blue toes.?Skin:?Dry skin?denies.?Itching?denies.?Denies?Mole(s),? changes in moles, new moles or any lesions of concern.?Denies?Photosensitivity.?Rash?denies.?Neurologic:?Dizziness?denies.?Fainting?denies.?Headache?denies.? * Medical History:?Colonoscopy 06/24/[address] Anderson; Colonoscopy 01/07/20 - Dr. Anderson (f/u biopsy), [facility], HX of transient global amnesia, HX of Vitamin D Deficiency, 11/22/2019 Flexible Cystoscopy - Dr. Riec. * Family History:?Father: dece ased 63 yrs.?Mother: 83 yrs.?1 brother(s) . 3 son(s) . .? Father-[place] MOther-lung and ovarian cancer 1 brother, Denies mental health/substance abuse family history, No pertinent family medical history, Denies mental health/substance abuse family history. * Social History:?Tobacco Use:?Tobacco Use/Smoking?Patient is a?former smoker,?How long has it been since you last smoked??> 10 years,?Additional Findings: Tobacco Non-User?Former smoker, currently using no form of tobacco.?Drugs/Alcohol:?Alcohol Screen?Did you have a drink containing alcohol in the past year??Yes,?How often did you have a drink containing alcohol in the past year??Monthly or less (1 point),?How many drinks did you have on a typical day when you were drinking in the past year??1 or 2 drinks (0 point),?How often did you have 6 or more drinks on one occasion in the past year??Never (0 point),?Points?1,?Interpretation?Negative.?Miscellaneous:?Caffeine: yes, frequency:, 1-2 cups per day. Children: yes. Community involvements: no. Exercise: no. Home smoke detector use: yes. Housing: owning. Living with: spouse. Marital status: . Occupation: retired. Pets: none. Travel outside of the [place]: no. * Medications:?Taking Ciclopir ox 0.77% cream as directed applied topically twice a day , Taking Magnesium 500 MG Tablet 1 tablet with a meal Orally Once a day , Taking Vitamin D-3 1000 UNIT Tablet 1 capsule Orally Once a day , Taking Meloxicam 15 MG Tablet TAKE 1 TABLET BY MOUTH EVERY DAY , Taking Levothyroxine Sodium 50 MCG Tablet TAKE 1 TABLET BY MOUTH EVERY DAY IN THE MORNING ON AN EMPTY STOMACH , Taking Triamcinolone Acetonide 0.5 % Cream 1 application Externally Twice a day , Medication List reviewed and reconciled with the patient * Allergies:?Cephadyn: hives, Keflex: hives, Paxil: nausea. Objective: * Vitals:?Ht: 64.50, Wt: 134, BMI:22.64, BP:132/58, Wt-k.78. * ???Past Orders: ???Lab:Complete Blood Count Auto Diff (Order Date - 07/13/2024) (Collection Date & Time - 07/13/2024 07:15 AM) ? Value Reference Range ?White Blood Count 5.4 4. 8-10.8 - X10*3/uL ?Red Blood Count 4.60 4.20 -5.50 - X10*6/uL ?Hemoglobin 13.8 12.0-16.0 - g/dl ?Hematocrit 43.0 37.0-47.0 - % ?Mean Corpuscular Volume 93.5 80.0-98.0 - fL ?Mean Corpuscular Hemoglobin 30.0 27.0-33.0 - pg ?Mean Corpuscular HGB Conc 32.1 31.0-35.0 - g/dl ?Red Cell Distribution Width 12.5 11.0-16.0 - % ?Platelet Count 355 160-4 00 - X10*3/uL ?Mean Platelet Volume 9.0 L 9.4-12.3 - fL ?Neutrophils Percent Auto 33.9 L 45-73 - % ?Imm Gran Pct Auto 0.2 0. 0-0.4 - % ?Lymphocytes Percent Auto 49.4 H 20-40 - % ?Monocytes Percent Auto 10.2 2-11 - % ?Eosinophils Percent Auto 5.6 H 0-4 - % ?Basophils Percent Auto 0.7 0-2 - % ?NRBC Pct Auto 0.0 0.0-0. 2 - /100WBC ?Neutrophils Absolute Auto 1.8 L 2.0-8.3 - x10*3/uL ?Imm Gran Abs Auto 0.01 0. 00-0.03 - X10*3/uL ?Lymphocytes Absolute Auto 2.7 1.2-4.9 - X10*3/uL ?Monocytes Absolute Auto 0.6 0.1-1.2 - X10*3/uL ?Eosinophils Absolute Auto 0.3 0.0-0.4 - X10*3/uL ?Basophils Absolute Auto 0.0 0.0-0.2 - X10*3/uL ?NRBC Abs Auto 0.000 0.0-0. 012 - X10*3/uL ???Lab:Microalbumin, Random (Order Date - 07/13/2024) (Collection Date & Time - 07/13/2024 07:15 AM) ? Value Reference Range ?Creatinine Urine 53.29 - m g/dL ?Microalbumin Urine < 5.0 - mg/L ?Microalbum Creatinin e Ratio Ur TNP <30 - ug/mg cr ???Lab:Hemoglobin A1c (Order Date - 07/13/2024) (Collection Date & Time - 07/13/2024 07:15 AM) ? Value Reference Range ?Hemoglobin A1c % 5.5 <6. 0 - % ?Estimated Average Glucose 111 - mg/dL ???Lab:UA ClnCatch+Micro w/r flx Cult (Order Date - 07/13/2024) (Collection Date & Time - 07/13/2024 07:15 AM) ? Value Reference Range ?Color Urine Yellow - ?Appearance Urine Cloudy - ?PH 7.5 5.0-9.0 - ?Glucose Urine UA Negative Neg ative - mg/dL ?Urine Blood Negative Negative - ?Specific Boody - Urine 1.010 1.005-1.025 - ?Urine Protein Negative Neg-Tr juan miguel - mg/dL ?Urine Ketones Negative Negati ve - mg/dL ?Nitrite Urine Positive A Negati ve - ?Leukocyte Esterase Urine Small (1+) A Negative - ?RBC Urine 0-2 0-2 - /HPF ?WBC Urine 0-5 0-5 - /HPF ?Squamous Epithelial Cell Urine 0-2 0-2 - /HPF ?Bacteria Urine 3+ None Seen - ?Hyaline Casts Urine 0-2 0-2 - /LPF ???Lab:Comprehensive [place]. P theo Fast (Order Date - 07/13/2024) (Collection Date & Time - 07/13/2024 07:15 AM) ? Value Reference Range ?Sodium 140 135-145 - mmo l/L ?Bilirubin Total 0.5 0.0- 1.0 - mg/dL ?Aspartate Amino Transferase 31 5-31 - U/L ?Alanine Aminotransferase 22 0-31 - U/L ?Total Protein 7.5 6.5-8. 0 - g/dL ?Albumin Level 4.0 3.5-5. 0 - g/dL ?Alkaline Phosphatase 77 39-117 - U/L ?Potassium 3.9 3.3-5.1 - mmol/L ?Chloride 104 96-108 - mm ol/L ?Carbon Dioxide 29 22-29 - mmol/L ?Anion Gap 11 L 12-20 - ?Blood Urea Nitrogen 19 H 9-16 - mg/dL ?Creatinine 0.79 0.5-1.4 - mg/dL ?Estimated Glomerular Filt Rate > 60 - ?Glucose Fasting 92 60-9 9 - mg/dL ?Calcium 9.3 8.4-10.2 - m g/dL * Examination: ???General Examination: ?GENERAL APPEARANCE:?well developed, well nourished, in no acute distress.?HEAD:?normocephalic, atraumatic.?EYES:?pupils equal, round, reactive to light and accommodation, sclera non-icteric.?EARS:?normal.?ORAL CAVITY:?mucosa moist.?THROAT:?clear.?NECK/THYROID:?neck supple, full range of motion, no cervical lymphadenopathy, no bruits.?SKIN:?warm and dry, no suspicious lesions, abnormal around base of neck is an erythmatous lesion.?HEART:?regular rate and rhythm, S1, S2 normal, no murmurs.?LUNGS:?clear to auscultation bilaterally.?BREASTS:?No mass, no lump.?ABDOMEN:?soft, nontender, nondistended, bowel sounds present, normal, no organomegaly , no masses palpable.?RECTAL EXAM:?done by flare breaker.?FEMALE GENITOURINARY:?done by flare breaker.?EXTREMITIES:?no clubbing, cyanosis, or edema.?NEUROLOGIC:?nonfocal, motor strength normal upper and lower extremities, sensory exam intact.? Assessment: * Assessment: 1.?Lymphocytosis - D72.820?? ?2.?Acquired hypothyroidism - E03.9???3.?History of vitamin D deficiency - Z86.39???4.?Achalasia - K22.0???5.?Mild eczema - L30.9???6.?Cervical disc disease - M50.90??? Plan: * Treatment: 2.?Acquired hypothyroidism? Refill Levothyroxine Sodium Tablet, 50 MCG, TAKE 1 TABLET BY MOUTH EVERY DAY IN THE MORNING ON AN EMPTY STOMACH, Orally, Once a day, 90 days, 90, Refills 3.?LAB: Vitamin D 25-OH Total (Collection Date & Time - 07/26/2024 09:30 AM) Notes: stable, will continue current regiment?? 3.?History of vitamin D defi ciency?LAB: Vitamin D 25-OH Total (Collection Date & Time - 07/26/2024 09:30 AM) Notes: pending labs?? 4.?Mild eczema? Refill Triamcinolone Acetonide Cream, 0.5 %, 1 application, Externally, Twice a day, 90 days, 60, Refills 1.?? 5.?Cervical disc disease? Refill Meloxicam Tablet, 15 MG, TAKE 1 TABLET BY MOUTH EVERY DAY, Orally, Once a day, 90 days, 90, Refills 3.?? * Procedure Codes:?28166 VENIP UNCT, ROUTINE* * Follow Up:?6 Months * * The named appointment provid er may or may not be the originator of this progress note, and it is not deemed complete until electronically signed by the appointment provider. Sign off status: Pending * Provider:?Danis Harden MD Date:?0 07/26/2024 Generated for Ruperto pollock/Buster/Grabielitting on:?07/26/2024 02:43 PM EST History and Physical Notes * HPI (History of Present Illness) Category Sub-Category Detail Notes Category Not es Symptom(s) patient is a 84 yo female here for review of recent labs and follow up of chronic issues, . gets tired and gets spasms. breakfast and lunch can eat but supper gets inability to eat and is tired. had endoscopy 8 months ago Depression Screening PHQ-9 Little inte rest or pleasure in doing things: Not at all Feeling down, depressed, or hopeless: No t at all Trouble falling or staying asleep, or sl eeping too much: Not at all Feeling tired or having little energy: N ot at all Poor appetite or overeating: Not at all Feeling bad about yourself o r that you are a failure, or have let yourself or your family down: Not at all Trouble concentrating on thi ngs, such as reading the newspaper or watching television: Not at all Moving or speaking so slowly that other people could have noticed; or the opposite, being so fidgety or restless that you have been moving around a lot more than usual: Not at all Thoughts that you would be b gerard off or of hurting yourself in some way: Not at all Total Score: 0 Interpretation and Intervention Depression Beatrice vidal Findings: Negative Follow-Up for Depression: : review of PH Q-9 found negative result, no follow-up needed SDOH Questions SDOH Questions In the past year have you been worried about losing housing?: No In the past year have you or any family members you live with been unable to get any of the following when it was really needed? Check all that apply:: None Fall Risk History Have you had any falls with injury i n the past year?: No Have you had two or more falls in the st year?: No Communication Needs Communication Needs Does the patient have a hearing impairment: No Does the patient have a vision impairmen t?: Yes ?If yes, what is the vision impairment?: Glasses Does the patient have a cognition impair ment?: No Examination Category Sub-Category Detail Notes Category Not es General Examination GENERAL APPEARANCE: well dev eloped, well nourished, in no acute distress HEAD: normocephalic, atrau matic EYES: pupils equal, round, reactive to light and accommodation, sclera non- icteric EARS: normal THROAT: clear NECK/THYROID: neck supple, full ra nge of motion, no cervical lymphadenopathy, no bruits HEART: regular rate and rhy thm, S1, S2 normal, no murmurs LUNGS: clear to auscultatio n bilaterally ABDOMEN: soft, nontender, non distended, bowel sounds present, normal, no organomegaly , no masses palpable NEUROLOGIC: nonfocal, motor stre ngth normal upper and lower extremities, sensory exam intact SKIN: warm and dry, no tonya picious lesions, abnormal around base of neck is an erythmatous lesion EXTREMITIES: no clubbing, cyanosi s, or edema BREASTS: No mass, no lump RECTAL EXAM: done by flare breaker FEMALE GENITOURINARY: done by flare breaker ORAL CAVITY: mucosa moist
--- OUTSIDE RECORDS SUMMARY | 2024-07-26 14:43 | XMS_ITS ---
Author Organization Danis Harden MD Address [address] [place], [place] [id number] Care Team Providers Care Physician Industrial Name Role Phone Danis Harden Primary Care Provider Results Component Value Reference Range Notes Complete Blood Count Auto Di ff Reviewed date:07/26/2024 12:26:00 PM Interpretation: Performing Lab:[facility], [address] [place] [phone] Notes/Report: White Blood Count 5.4 4.8-10.8 X10*3/uL [...] X10*3/uL NRBC Abs Auto 0.000 0.0-0.012 X10*3/uL Comprehensive [place]. Panel Fa st Reviewed date:07/26/2024 12:26:32 PM Interpretation: Performing Lab:[facility], [address] [place] [phone] Notes/Report: Sodium 140 135-145 mmol/L Potassium 3.9 3.3-5.1 mmol/L Chloride 104 96-108 mmol/L Carbon Dioxide 29 22-29 mmol/L Anion Gap 11 12-20 Blood Urea Nitrogen 19 9-16 mg/dL Creatinine 0.79 0.5-1.4 mg/dL Estimated Glomerular Filt Rate > 60 Chronic Kidney Disease: Estimated GFR < 60 mL/min/1.73m2 Severe Kidney Disease: Estimated GFR < 15 mL/min/1.73m2 Glucose Fasting 92 60-99 mg/dL Calcium 9.3 8.4-10.2 mg/dL Bilirubin Total 0.5 0.0-1.0 mg/dL Aspartate Amino Transferase 31 5-31 U/L Alanine Aminotransferase 22 0-31 U/L Total Protein 7.5 6.5-8.0 g/dL Albumin Level 4.0 3.5-5.0 g/dL Alkaline Phosphatase 77 39-117 U/L Lipid Panel Reviewed date:07/26/2024 12:25:31 PM Interpretation: Performing Lab:[facility], [address] [place] [phone] Notes/Report: Triglycerides 90 <150 mg/dL Desirable Triglyceride: less than 150 mg/dL Borderline High Triglyceride 150-199 mg/dL High Triglyceride: 200-499 mg/dL Very High Triglyceride: greater than or equal to 5OO mg/dL Cholesterol 211 <200 mg/dL Desirable Cholesterol: less than 200 mg/dL Borderline High Cholesterol: 200-239 mg/dL High Cholesterol: greater than 239 mg/dL LDL Cholesterol Calculated 126 <100 mg/dL Desirable LDL: less than 100 mg/dL Near Optimal/Above Optimal LDL: 110-129 mg/dL Borderline High LDL: 130-159 mg/dL High LDL: 160-189 mg/dL Very High LDL: greater than or equal to 190 mg/dL HDL Cholesterol 67 >40 mg/dL Desirable HDL: greater than 40 mg/dL Note: This HDL assay may give artificially low results in patients with liver disease. TSH reflex Free T4 Reviewed date:07/26/2024 12:26:13 PM Interpretation: Performing Lab:[facility], [address] [place] [phone] Notes/Report: TSH reflex Free T4 2.56 0.32-4.0 uIU/mL Microalbumin, Random Reviewed date:07/26/2024 12:26:07 PM Interpretation: Performing Lab:[facility], [address] [place] [phone] Notes/Report: Creatinine Urine 53.29 Microalbumin Urine < 5.0 Microalbum/Creatinine Ratio Ur TNP <30 ug/mg cr Unable to calculate albumin/creatinine ratio due to low microalbumin or creatinine result. Hemoglobin A1c Reviewed date:07/26/2024 12:26:19 PM Interpretation: Performing Lab:[facility], [address] [place] [phone] Notes/Report: Hemoglobin A1c % 5.5 <6.0 % [...] average glucose, using the formula of the A4H-Jlhphnt Average Glucose study (ADAG), Diabetes Care, Vol.31,#8, 2007 UA ClnCatch+Micro w/rflx Cul t Reviewed date:07/26/2024 12:25:14 PM Interpretation: Performing Lab:[facility], [address] [facility], [place] [phone] Notes/Report: Urine, Clean Catch Color Urine Yellow Appearance Urine Cloudy PH 7.5 5.0-9.0 Glucose Urine UA Negative Negative mg/dL Urine Blood Negative Negative Specific [place] - Urine 1.010 1.005-1.025 Urine Protein Negative [...] Location Date Provider Diagnosis Danis Harden MD [address] [place] [address] [place] [phone] 07/13/2024 Danis Harden Acquired hypothyroidism E03.9 and Prediabetes R73.09 Assessments Encounter Date Diagnosis (ICD Code) Assessment Notes Treatment Notes Treatment Clinical Notes Section Notes 07/13/2024 Acquired hypothyroidism (ICD-10 - E03.9) 07/13/2024 Prediabetes (ICD-10 - R73.09) Plan Of Treatment Next Appt Details Provider Name:Dains goodman, 01/24/2025 10:00:00 AM, [address] [place] [address], [address], [phone], Provider Name:Danis goodman, 07/22/2025 07:15:00 AM, [address] [place] [address], [address], [phone], Provider Name:Danis goodman, 07/29/2025 09:30:00 AM, [address] [place] [address], [address], [phone], Progress Notes * Klaudia ZAVALA ADOB: (84 yo F)Acc No.[id number]:07/13/2024 Progress Note Patient:Klaudia JAQUEZ Provider:?Danis Harden MD :1940???Age:84 Y???Sex:Female D ate:07/13/2024 Address:[address] [place] [address] [id number] Subjective: * Chief Complaints: * ???1. Yearly fasting labs. * Medical History:? Objective: * Vitals:? Assessment: * Assessment: 1.?Acquired hypothyroidism - E03.9 (Primary)???2.?Prediabetes - R73.09??? Plan: * Treatment: 2.?Prediabetes?LAB: Complete Blood Count Auto Diff (Collection Date & Time - 07/13/2024 07:15 AM) ?LAB: Comprehensive [place]. Panel Fast (Collection Date & Time - 07/13/2024 07:15 AM) ?LAB: Lipid Panel (Collection Date & Time - 07/13/2024 07:15 AM) ?LAB: TSH reflex Free T4 (Collection Date & Time - 07/13/2024 07:15 AM) ?LAB: Microalbumin, Random (Collection Date & Time - 07/13/2024 07:15 AM) ?LAB: Hemoglobin A1c (Collection Date & Time - 07/13/2024 07:15 AM) ?LAB: UA ClnCatch+Micro w/rflx Cult (Collection Date & Time - 07/13/2024 07:15 AM) * Procedure Codes:?42437 VENIP UNCT, ROUTINE* * * The named appointment provid er may or may not be the originator of this progress note, and it is not deemed complete until electronically signed by the appointment provider. Sign off status: Pending * Provider:?Danis Harden MD Date:?0 07/13/2024 Generated for Printi ng/Faxing/eTransmitting on:?07/26/2024 02:42 PM EST
== END 2024-07-26 12:58 | disposition home or self-care (01) ==
LOC: HO.LNP 12:57
PROVIDERS: Visit Provider Internal Medicine
DX: D72.820 Lymphocytosis (symptomatic) (principal); E03.9 Hypothyroidism, unspecified; Z86.39 Personal history of other endocrine, nutritional and metabolic disease
CPT/HCPCS: 82306; 85025

== ENCOUNTER 2024-09-28 14:48 | Outpatient (REF) | payer MEDICARE, SELFPAY | END 2024-09-28 14:49 | disposition home or self-care (01) | LOC: HO.MAMMO 14:48 | PROVIDERS: PCP Internal Medicine; Visit Provider Internal Medicine | DX: Z12.31 Encounter for screening mammogram for malignant neoplasm of breast (principal) | CPT/HCPCS: 77063; 77067 ==

== ENCOUNTER → 2024-09-28 15:30 | Outpatient (BNV) | payer MEDICARE, SELFPAY | PROVIDERS: PCP Internal Medicine; Visit Provider Internal Medicine | DX: Z12.31 Encounter for screening mammogram for malignant neoplasm of breast (principal) | CPT/HCPCS: 77063; 77067 ==

== ENCOUNTER 2025-01-24 13:06 | Outpatient (REF) | payer MEDICARE, SELFPAY | END 2025-01-24 13:07 | disposition home or self-care (01) | LOC: HO.LNP 13:06 | PROVIDERS: Visit Provider Internal Medicine | DX: E03.9 Hypothyroidism, unspecified (principal) | CPT/HCPCS: 84443 ==